=== PATIENT | female | born 1960 | race Caucasian/White ===

== ENCOUNTER 2016-07-21 17:28 | Emergency (ER) | payer MEDICARE, MEDICAID ==
[2016-07-21] MEDS ORDERED: HYDROmorphone* 1 MG/ML 1 ML SYR IV SLOW PU ONE (18:06)
[2016-07-21] MEDS ORDERED: Ondansetron INJ* 2 MG/ML VIAL IV ONE (18:06)
[2016-07-21] MEDS: NS 0.9% 1000 ML* 2,000 ML IV ONE (18:20)
[2016-07-21 18:40] LABS: Hematocrit 31 % (35-47); Hemoglobin 10.1 g/dl (12.0-16.0); Mean Corpuscular HGB Conc 32 g/dl (31-36); Mean Corpuscular Hemoglobin 26 pg (27-31); Mean Corpuscular Volume 81 fL (80-97); Mean Platelet Volume 8 um3 (7.4-10.4); Red Blood Count 3.85 10^6/ul (4.0-5.4); Red Cell Distribution Width 18 % (10.5-15); White Blood Count 8.6 10^3/ul (3.5-10.8)
--- NOTE | 2016-07-21 18:41 | RAD ---
CLINICAL HISTORY: Lower abdominal pain, hematuria COMPARISON: December 03, 2013 TECHNIQUE: Multiple contiguous axial CT scans were obtained of the abdomen and pelvis, without intravenous contrast enhancement. Coronal and sagittal multiplanar reformations are submitted for review. Oral contrast was not administered. FINDINGS: The study is limited by the lack of intravenous contrast. This limits evaluation of the solid organs and vasculature. LUNG BASES: The lung bases are clear. LIVER: The liver is normal in shape, size, contour, and attenuation. BILE DUCTS: There is no intrahepatic or extrahepatic biliary dilatation. GALLBLADDER: The gallbladder is not visualized. Surgical clips are noted in the gallbladder fossa. PANCREAS: The pancreas is normal, without mass or ductal dilatation. SPLEEN: Normal in size and appearance. UPPER GI TRACT: Evaluation of the gastrointestinal tract is limited by incomplete gastric distention. The upper GI tract is unremarkable. SMALL BOWEL AND MESENTERY: The small bowel is normal in contour, course, and caliber. There is no obstruction or dilatation. COLON: The colon is normal in contour, course, caliber. There is no pericolonic inflammatory change. ADRENALS: Normal bilaterally. KIDNEYS: Exophytic renal cysts are noted on the right. There is no appreciable hydronephrosis or nephrolithiasis, though evaluation of the distal ureters is limited by streak artifact from spinal fusion hardware BLADDER: The bladder is incompletely distended but is grossly normal. PELVIC ORGANS: The pelvic organs are not visualized. AORTA: There is calcific atherosclerotic disease of the abdominal aorta and its branches, without aneurysmal dilatation IVC: Unremarkable LYMPH NODES: There is no lymphadenopathy by size criteria. ABDOMINAL WALL: There is no evidence for abdominal wall hernia. BONES AND SOFT TISSUES: The patient is status post spinal fusion. OTHER: None IMPRESSION: NO APPRECIABLE HYDRONEPHROSIS OR NEPHROLITHIASIS. EVALUATION OF THE DISTAL URETERS IS LIMITED BY STREAK ARTIFACT FROM SPINAL FUSION HARDWARE.
[2016-07-21 18:45] LABS: Urine Bilirubin Negative (Negative); Urine Glucose Negative (Negative); Urine Nitrite Negative (Negative)
[2016-07-21 18:56] LABS: Calcium 9.3 mg/dL (8.6-10.3); EGFR Non-African American 91.7 (>60); Globulin 3.2 g/dL (2-4); Potassium 3.6 mmol/L (3.5-5.0); Total Bilirubin 0.4 mg/dL (0.2-1.0); Total Protein 7.2 g/dL (6.4-8.9)
--- NOTE | 2016-07-21 19:43 | ED ---
GI/ HPI - HPI Summary HPI Summary: 56F presents with lower abdominal pain, blood in urine, and vaginal itchiness for a day. She states she has history of yeast infection although she is not diabetic and denies any recent antibiotic usage. She denies any vaginal discharge. She states when she had this pain in the past they treated as a yeast infection. She admits to epigastric pain which she says is due to GERD. Her only medical conditions is that she takes dilaudid for her chronic back pain. She had her gallbladder, ovaries, and uterus removed. She has had rods placed in her back. She denies any diarrhea or constipation. She had normal colonscopy 3 years ago. She states that her groin has been sweating more and feels swollen. She has tried hydrogen peroxide, different soaps, hydrocortisone on area without relief. She says that the itchiness of her groin has gotten worst and she keeps scratching the area. She denies any dysuria but admits to frequency and urgency. She states she occasionally has bilateral flank pain and she has a history of kidney stones. - History of Current Complaint Chief Complaint: EDUrogenitalProblems Time Seen by Provider: 07/21/16 17:52 Stated Complaint: ABD PAIN/SENT FROM [facility] Pain Intensity: 6 - Allergy/Home Medications Allergies/Adverse Reactions: Allergies Allergy/AdvReac Type Severity Reaction Status Date / Time Acetaminophen [From Tylenol] Allergy Unknown Unknown Verified 07/21/16 18:43 Reaction Details Codeine Allergy Unknown Rash Verified 07/21/16 18:43 Naproxen Allergy Unknown Unknown Verified 07/21/16 18:43 Reaction Details Morphine Allergy Rash Verified 07/21/16 18:43 PMH/Surg Hx/FS Hx/Imm Hx Endocrine/Hematology History: Denies: Hx Anticoagulant Therapy Cardiovascular History: Denies: Hx Pacemaker/ICD GI History: Reports: Hx Ulcer - no tylenol or naproxen as per pt Musculoskeletal History: Reports: Hx Back Problems - Dr Roberts for pain management., Other Musculoskeletal History - neck pain Denies: Hx Scoliosis Neurological History: Reports: Hx Headaches, Other Neuro Impairments/Disorders - Cancer History Hx Chemotherapy: Yes - HEPATITIS C-2009 Hx Radiation Therapy: No - Surgical History Surgery Procedure, Year, and Place: LARGE CELL ARTERYITIS 6MTHS AGO AT [place], -SPINE SURGERY 2004 DISCECTOMY, HYSTERECTOMY, Infectious Disease History: No Infectious Disease History: Denies: Traveled Outside the [place] in Last 30 Days - Family History Known Family History: Positive: Cardiac Disease - Social History Alcohol Use: Occasionally Substance Use Type: Reports: Prescribed Smoking Status (MU): Current Every Day Smoker Review of Systems Negative: Fever Negative: Chest Pain Negative: Shortness Of Breath Positive: Abdominal Pain. Negative: Vomiting, Diarrhea, Nausea Positive: frequency, flank pain, hematuria. Negative: dysuria All Other Systems Reviewed And Are Negative: Yes Physical Exam Triage Information Reviewed: Yes Vital Signs On Initial Exam: Initial Vitals Temp Pulse Resp BP Pulse Ox 98.9 F 77 18 151/81 97 07/21/16 17:44 07/21/16 17:44 07/21/16 17:44 07/21/16 17:44 07/21/16 17:44 Vital Signs Reviewed: Yes Appearance: Positive: Well-Appearing Skin: Positive: Warm, Dry, Other - small raised lesions on mons pubis Head/Face: Positive: Normal Head/Face Inspection Eyes: Positive: Normal, Conjunctiva Clear ENT: Positive: Normal ENT inspection, Pharynx normal, TMs normal Respiratory/Lung Sounds: Positive: Clear to Auscultation, Breath Sounds Present Cardiovascular: Positive: Normal, RRR Abdomen Description: Positive: Soft, Other: - mild tenderness in pelvic region Bowel Sounds: Positive: Present Pelvic Exam: Positive: external exam normal, speculum exam normal, bimanual exam normal. Negative: discharge - [place] Coma Scale Coma Scale Total: 15 Diagnostics - Vital Signs Vital Signs Temp Pulse Resp BP Pulse Ox 07/21/16 18:33 148/64 07/21/16 18:20 18 07/21/16 18:12 70 97 07/21/16 18:09 74 96 07/21/16 17:58 98 F 67 16 172/67 97 07/21/16 17:44 98.9 F 77 18 151/81 97 - Laboratory Lab Results: Lab Results 07/21/16 07/21/16 07/21/16 Range/Units 18:25 18:25 18:25 WBC 8.6 (3.5-10.8) 10^3/ul RBC 3.85 L (4.0-5.4) 10^6/ul Hgb 10.1 L (12.0-16.0) g/dl Hct 31 L (35-47) % MCV 81 (80-97) fL MCH 26 L (27-31) pg MCHC 32 (31-36) g/dl RDW 18 H (10.5-15) % Plt Count 225 (150-450) 10^3/ul MPV 8 (7.4-10.4) um3 Neut % (Auto) 53.7 (38-83) % Lymph % (Auto) 31.6 (25-47) % [place] % (Auto) 7.0 (1-9) % Eos % (Auto) 6.8 H (0-6) % Baso % (Auto) 0.9 (0-2) % Absolute Neuts (auto) 4.6 (1.5-7.7) 10^3/ul Absolute Lymphs (auto) 2.7 (1.0-4.8) 10^3/ul Absolute Monos (auto) 0.6 (0-0.8) 10^3/ul Absolute Eos (auto) 0.6 (0-0.6) 10^3/ul Absolute Basos (auto) 0.1 (0-0.2) 10^3/ul Absolute Nucleated RBC 0 10^3/ul Nucleated RBC % 0 Sodium 131 L (133-145) mmol/L Potassium 3.6 (3.5-5.0) mmol/L Chloride 99 L (101-111) mmol/L Carbon Dioxide 27 (22-32) mmol/L Anion Gap 5 (2-11) mmol/L BUN 6 (6-24) mg/dL Creatinine 0.67 (0.51-0.95) mg/dL Est GFR ( Amer) 118.0 (>60) Est GFR (Non-Af Amer) 91.7 (>60) BUN/Creatinine Ratio 9.0 (8-20) Glucose 84 (70-100) mg/dL Lactic Acid (0.5-2.0) mmol/L Calcium 9.3 (8.6-10.3) mg/dL Total Bilirubin 0.40 (0.2-1.0) mg/dL AST 17 (13-39) U/L ALT 9 (7-52) U/L Alkaline Phosphatase 74 (34-104) U/L C-React Prot High Sens 6.26 mg/L Total Protein 7.2 (6.4-8.9) g/dL Albumin 4.0 (3.2-5.2) g/dL Globulin 3.2 (2-4) g/dL Albumin/Globulin Ratio 1.3 (1-3) Lipase 35 (11.0-82.0) U/L Urine Color Straw Urine Appearance Clear Urine pH 6.0 (5-9) Ur Specific [place] 1.003 L (1.010-1.030) Urine Protein Negative (Negative) Urine Ketones Negative (Negative) Urine Blood Negative (Negative) Urine Nitrate Negative (Negative) Urine Bilirubin Negative (Negative) Urine Urobilinogen Negative (Negative) Ur Leukocyte Esterase Negative (Negative) Urine Glucose Negative (Negative) 07/21/16 Range/Units 18:25 WBC (3.5-10.8) 10^3/ul RBC (4.0-5.4) 10^6/ul Hgb (12.0-16.0) g/dl Hct (35-47) % MCV (80-97) fL MCH (27-31) pg MCHC (31-36) g/dl RDW (10.5-15) % Plt Count (150-450) 10^3/ul MPV (7.4-10.4) um3 Neut % (Auto) (38-83) % Lymph % (Auto) (25-47) % [place] % (Auto) (1-9) % Eos % (Auto) (0-6) % Baso % (Auto) (0-2) % Absolute Neuts (auto) (1.5-7.7) 10^3/ul Absolute Lymphs (auto) (1.0-4.8) 10^3/ul Absolute Monos (auto) (0-0.8) 10^3/ul Absolute Eos (auto) (0-0.6) 10^3/ul Absolute Basos (auto) (0-0.2) 10^3/ul Absolute Nucleated RBC 10^3/ul Nucleated RBC % Sodium (133-145) mmol/L Potassium (3.5-5.0) mmol/L Chloride (101-111) mmol/L Carbon Dioxide (22-32) mmol/L Anion Gap (2-11) mmol/L BUN (6-24) mg/dL Creatinine (0.51-0.95) mg/dL Est GFR ( Amer) (>60) Est GFR (Non-Af Amer) (>60) BUN/Creatinine Ratio (8-20) Glucose (70-100) mg/dL Lactic Acid 0.9 (0.5-2.0) mmol/L Calcium (8.6-10.3) mg/dL Total Bilirubin (0.2-1.0) mg/dL AST (13-39) U/L ALT (7-52) U/L Alkaline Phosphatase (34-104) U/L C-React Prot High Sens mg/L Total Protein (6.4-8.9) g/dL Albumin (3.2-5.2) g/dL Globulin (2-4) g/dL Albumin/Globulin Ratio (1-3) Lipase (11.0-82.0) U/L Urine Color Urine Appearance Urine pH (5-9) Ur Specific [place] (1.010-1.030) Urine Protein (Negative) Urine Ketones (Negative) Urine Blood (Negative) Urine Nitrate (Negative) Urine Bilirubin (Negative) Urine Urobilinogen (Negative) Ur Leukocyte Esterase (Negative) Urine Glucose (Negative) Result Diagrams: 07/21/16 18:25 07/21/16 18:25 Lab Statement: Any lab studies that have been ordered have been reviewed, and results considered in the medical decision making process. - CT abd CT Interpretation: No Acute Changes - IMPRESSION: NO APPRECIABLE HYDRONEPHROSIS OR NEPHROLITHIASIS. EVALUATION OF THE DISTAL URETERS IS LIMITED BY STREAK ARTIFACT FROM SPINAL FUSION HARDWARE. CT Interpretation Completed By: Radiologist TAWNY Course/Dx - Course Course Of Treatment: 56F presents with what she believes to be a yeast infection. She states she has had itching to her groin for 5 years and has been treated as yeast infection before and it goes away. denies any vaginal discharge. She states she has been placing hydrogen peroxide, hydrocortisone on area and it is making it worst. She states pain radiates up to lower abdomen. she denies any n/v/d. She has what appears to be contact dermatitis to mons pubis. vaginal exam normal no discharge present no evidence of yeast infection on exam. abdomen mild tenderness in RLQ and LLQ. CT ab to look for stone did not show stones. u/a normal. wbc normal. discussed needs to see OBGYN about vaginal itching as likely hormone related but no lesions seen. pubic area appears to have contact dermatitis likely due to irrigants such as hydrogen peroxide has been using on area. told to stop all products. patient understands and agrees with plan - Diagnoses Differential Diagnoses - Female: Urinary Tract Infection, Ureteral Calculi, Vaginitis Provider Diagnoses: Abdominal pain, Contact dermatitis Discharge - Discharge Plan Condition: Good Disposition: HOME Patient Education Materials: Contact Dermatitis (ED) Referrals: Anthony Elkins MD [Primary Care Provider] - Additional Instructions: Your pain is not caused by any surgical emergency Drink small amounts of fluid as tolerated Stop all vaginal products, do not itch area Take ibuprofen for pain as needed every 6 hours Follow up with primary within 5 days Follow up with obgyn Return to ED if develop any new or worsening symptoms
[2016-07-21 20:30] VITALS: BP 120/48
== END 2016-07-21 20:40 | disposition home or self-care (01) ==
LOC: ED 17:28
DX: R10.30 Lower abdominal pain, unspecified (principal); L25.9 Unspecified contact dermatitis, unspecified cause; R31.9 Hematuria, unspecified; F17.210 Nicotine dependence, cigarettes, uncomplicated
CPT/HCPCS: 36415; 74176; 80053; 81003; 83605; 83690; 85025; 86141; 87480; 87491; 87510; 87591; 87661; 93005; 99282; J1170; J2405

== ENCOUNTER 2016-11-30 06:27 | Observation (INO) | payer MEDICARE, MEDICAID ==
[2016-11-30] MEDS ORDERED: NS 0.9% 1000 ML* 1,000 ML IV ONE ×2 (07:20→08:03)
[2016-11-30 07:40] LABS: Hematocrit 39 % (35-47); Hemoglobin 12.8 g/dl (12.0-16.0); Mean Corpuscular HGB Conc 33 g/dl (31-36); Mean Corpuscular Hemoglobin 30 pg (27-31); Mean Corpuscular Volume 90 fL (80-97); Mean Platelet Volume 8 um3 (7.4-10.4); Red Blood Count 4.27 10^6/ul (4.0-5.4); Red Cell Distribution Width 16 % (10.5-15); White Blood Count 15.6 10^3/ul (3.5-10.8)
[2016-11-30 07:52] LABS: Urine Bacteria 1+ (Absent); Urine Bilirubin Negative (Negative); Urine Glucose Negative (Negative); Urine Nitrite Positive (Negative)
[2016-11-30 07:54] LABS: Albumin 4.1 g/dL (3.2-5.2); BUN/Creatinine Ratio 21.1 (8-20); C Reactive Protein 16.4 mg/L (< 5.00); Calcium 9.5 mg/dL (8.6-10.3); EGFR African American 110.3 (>60); EGFR Non-African American 85.8 (>60); Potassium 4.1 mmol/L (3.5-5.0); Total Bilirubin 0.3 mg/dL (0.2-1.0); Total Protein 7.1 g/dL (6.4-8.9)
[2016-11-30] MEDS ORDERED: HYDROmorphone INJ* 1 MG/ML CARPUJECT SYRINGE IV ONE ×2 (08:03→08:27)
[2016-11-30] MEDS ORDERED: cefTRIAXone(*) 1 GM in NS 0.9% 50 ML* 50 ML IVPB ONE (08:03)
[2016-11-30] MEDS ORDERED: Ondansetron INJ* 2 MG/ML VIAL IV ONE (08:03)
[2016-11-30] MEDS ORDERED: HYDROmorphone INJ* 2 MG/ML CARPUJECT SYRINGE ONE ×2 (08:13→08:33)
--- NOTE | 2016-11-30 10:37 | RAD ---
Indication: Hematuria, lower abdominal pain. CT of the abdomen and pelvis was performed without oral or IV contrast administration. Coronal and sagittal reconstructed images were obtained. Lung bases demonstrate no pleural fluid, nodules or masses. Heart is of normal size without effusion is noted. The liver is normal in size. No focal lesions or intrahepatic duct dilatation is noted. The patient is status post cholecystectomy. The spleen is normal in size. The pancreas demonstrates no mass or pancreatic duct dilatation. No adrenal masses are noted. There is mild degree of left hydronephrosis noted. Portions of the left ureter are obscured by artifact from surgical change. There is suggestion of a calculus in the distal left ureter measuring approximately 4 mm. Several phleboliths are also present. The urinary bladder is collapsed. The patient is status post hysterectomy. No hernias are noted. No free fluid is identified. The colon is filled with stool. IMPRESSION: Mild left hydronephrosis. Likely 4 mm calculi in the distal left ureter. Portions of the ureter are obscured by surgical clips from postoperative change.
[2016-11-30] MEDS ORDERED: Morphine INJ* 2 MG/ML 1 ML SYRINGE (TWO MG - NEW SYRINGE VERSION) IV PRN (12:45)
[2016-11-30] MEDS ORDERED: Ondansetron INJ* 2 MG/ML VIAL IV PRN (12:45)
[2016-11-30] MEDS ORDERED: HYDROmorphone INJ* 2 MG/ML CARPUJECT SYRINGE IV SLOW PU ONE (13:26)
[2016-11-30] MEDS: Heparin VIAL(*) 5000 UNITS/ML VIAL (FIVE THOUSAND) SUBCUT SCH ×2 (15:02→22:42)
[2016-11-30] MEDS: Tamsulosin CAP* 0.4 MG PO SCH (15:29)
[2016-11-30] MEDS: NS 0.9% 1000 ML* 1,000 ML IV SCH (15:32)
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
[2016-11-30] MEDS ORDERED: HYDROmorphone TAB* 2 MG PO SCH (18:00)
[2016-11-30] MEDS ORDERED: ALPRAZolam TAB* 0.5 MG PO SCH (18:00)
[2016-11-30] MEDS: ALPRAZolam TAB* 0.5 MG PO PRN ×2 (18:07→22:41)
[2016-11-30] MEDS ORDERED: Nicotine GUM* 2 MG PO PRN (19:40)
[2016-11-30] MEDS ORDERED: Nicotine Inhaler* 10 MG AMP INH PRN (19:40)
[2016-11-30] MEDS ORDERED: Mouth Piece, Nicotine* 1 EACH CARTRIDGE INH ONE (20:30)
[2016-11-30] MEDS: HYDROmorphone INJ* 2 MG/ML CARPUJECT SYRINGE IV SLOW PU PRN (20:37)
--- NOTE | 2016-12-01 00:45 | HP ---
CC: Anthony Elkins MD* HISTORY AND PHYSICAL: DATE OF ADMISSION: 11/30/16 CHIEF COMPLAINT: Abdominal pain with bleeding. HISTORY OF PRESENT ILLNESS: The patient is a 56-year-old woman, who presented to the [facility] with a chief complaint of bleeding when she was urinating, which started yesterday evening. She developed cramping in both sides of her groin area. It travelled to her back. She has a history of chronic pain, but this is really significantly different. She also could tell me the urge to urinate and then developed diarrhea. She said eventually she was able to go back to sleep, but she woke up from her sleep with such increased pain. She has had kidney stones before and was reminiscent of this. She also developed dry heaves while having it. She denied any fevers or chills. The patient had a CAT scan of her abdomen and pelvis, which showed a small 4-mm calculi and mild left hydronephrosis. PAST MEDICAL HISTORY: The patient has a past medical history for chronic back pain since 1998 and one 18 hour long back surgery in 2004. CURRENT MEDICATIONS: 1. Estradiol 1 mg in the morning. 2. Xanax 0.5 mg in the morning, 1 mg in the evening. 3. Nexium 20 mg daily. 4. Dilaudid tab 4 mg in the morning and 2 mg in the evening. 5. Ibuprofen 200 mg in the morning. 6. Pristiq 50 mg in the morning. ALLERGIES: She has an allergy/adverse reaction to ACETAMINOPHEN, CODEINE, NAPROXEN, and MORPHINE. FAMILY HISTORY: Mother is alive at 89, has dementia. Father at 81 with an MS. SOCIAL HISTORY: Occasional tobacco. Rare alcohol. No recreational drug use. She is a home health aide. She is not . She has no children. She has no healthcare proxy. REVIEW OF SYSTEMS: A 14-point review of systems was completed with the patient. All pertinent positives and negatives are in the history of present illness, otherwise it is negative. PHYSICAL EXAMINATION GENERAL: A pleasant woman, lying in bed, in no acute distress. VITAL SIGNS: Temperature is 97.6 degrees, heart rate is 62 beats per minute, respiratory rate 16 breaths per minute, pulse ox 98%, blood pressure 122/50. HEENT: Normocephalic, atraumatic. Pupils equal, round, and reactive to light. Moist mucous membranes. NECK: Supple. No JVD, bruits, palpable thyroid, or lymphadenopathy. CHEST: Clear to auscultation and percussion bilaterally. CARDIOVASCULAR: S1, S2 appreciated. Regular rate and rhythm. ABDOMEN: Positive bowel sounds in all 4 quadrants. Soft, minimally tender, but no rebound, no guarding or rigidity. EXTREMITIES: No cyanosis, clubbing, or edema. +2 pulses bilaterally. NEURO: Alert and oriented x3. Moves all extremities. SKIN: No rashes or abnormalities. DIAGNOSTIC STUDIES/LAB DATA: White count 15.6, hemoglobin 12.8, hematocrit 39 , and platelets 257. Sodium is 137, potassium 4.1, chloride 105, CO2 26, BUN 15 , creatinine 0.71, and glucose is 113. INR is 0.82. Urinalysis is +2 wbc's, + 2 rbc's, +1 bacteria. CAT scan of the abdomen and pelvis shows mild left hydronephrosis, left 4-mm calculi at the distal left ureter, and portions of the ureters are obscured by surgical clips and postoperative change. ASSESSMENT AND PLAN: 1. Nephrolithiasis with some mild hydronephrosis. The patient to [facility] [place], adequately treat her pain with additional IV Dilaudid, hydrate with normal saline at cc. Would recheck in the a.m. If the patient continues to have pain, may need Urology to evaluate for possible stent placement and we will also continue the patient on Rocephin 1 g IV daily. 2. Chronic pain, stable. Continue current regimen. 3. DVT prophylaxis, heparin subcu. 4. The patient is a full code. TIME SPENT: Over 75 minutes was spent on this H and P, more than 40 minutes of which was spent in direct [id number] contact with the patient in evaluation, physical exam, counseling, and coordination of care. [id number]/[facility] #: [id number] [place]
[2016-12-01] MEDS: HYDROmorphone INJ* 2 MG/ML CARPUJECT SYRINGE IV SLOW PU PRN (00:58)
[2016-12-01] MEDS: NS 0.9% 1000 ML* 1,000 ML IV SCH (02:59)
[2016-12-01] MEDS ORDERED: Nicotine Patch Removal NOTE FOLLOW UP SCH (06:00)
[2016-12-01] MEDS: Heparin VIAL(*) 5000 UNITS/ML VIAL (FIVE THOUSAND) SUBCUT SCH (06:22)
[2016-12-01] MEDS ORDERED: cefTRIAXone VIAL(*) 1,000 MG in NS 0.9% 50 ML* 50 ML IVPB SCH (08:00)
[2016-12-01] MEDS ORDERED: Nicotine PATCH 21 MG/24 HR* PATCH TRANSDERM SCH (08:00)
[2016-12-01] MEDS ORDERED: Omeprazole CAP* 20 MG PO SCH (09:00)
[2016-12-01] MEDS ORDERED: Ibuprofen TAB* 200 MG PO SCH (09:00)
[2016-12-01] MEDS ORDERED: HYDROmorphone TAB* 2 MG PO SCH (09:00)
[2016-12-01] MEDS ORDERED: ALPRAZolam TAB* 0.5 MG PO SCH (09:00)
[2016-12-01] MEDS ORDERED: Desvenlafaxine (NF) 50 MG TAB PO SCH (09:00)
[2016-12-01] MEDS ORDERED: CMCS: Estradiol TAB(NF) 1 MG TAB PO SCH (09:00)
[2016-12-01] MEDS: Tamsulosin CAP* 0.4 MG PO SCH (10:24)
[2016-12-01 12:46] VITALS: BP 168/62
--- NOTE | 2016-12-03 06:37 | DS ---
CC: Anthony Elkins MD* DISCHARGE SUMMARY: DATE OF ADMISSION: 11/30/16 DATE OF DISCHARGE: 12/01/16 ADMISSION DIAGNOSES: 1. Bilateral inguinal pain. 2. Hematuria. 3. Left hydronephrosis. 4. Nephrolithiasis. 5. Chronic pain. DISCHARGE DIAGNOSES: 1. Bilateral inguinal pain. 2. Hematuria. 3. Left hydronephrosis. 4. Nephrolithiasis. 5. Chronic pain. HOSPITAL COURSE: The patient is a 56-year-old woman, who presented to [facility] with a chief complaint of bilateral inguinal pain and blood in her urine. The patient was found to have a left ureteral calculus with mild left hydro. This was discussed with Urology. He recommended hydrating the patient vigorously for pain management and she should pass that on her own, otherwise she would get a stent. This was what was done. The patient improved dramatically and just in the next 24 hours her pain resolved and she was anxious to go home. The patient was stable to discharge on 12/01/16. PHYSICAL EXAMINATION: On the date of discharge, well-developed, well-nourished woman, sitting up in bed, in no acute distress. Vital Signs: Temperature is 98.8 degrees, heart rate 62 beats per minute, respiratory rate 17 breaths per minute, pulse ox 98%, blood pressure 168/62. HEENT: Normocephalic, atraumatic. Pupils equal, round, and reactive to light. Moist mucous membranes. Neck: Supple. No JVD, bruits, palpable thyroid, or lymphadenopathy. Chest: Clear to auscultation and percussion bilaterally. Cardiovascular Exam: S1, S2 appreciated. Regular rate and rhythm. Abdominal Exam: Positive bowel sounds in all 4 quadrants, soft, nontender, nondistended. No hepatosplenomegaly. Extremities: No cyanosis, clubbing, or edema. +2 pulses bilaterally. Neuro: Alert and oriented x3, moves all extremities. Skin : No rashes or abnormalities. STUDIES DONE WHILE IN THE HOSPITAL: Abdominal and pelvic CT on 11/30/16, impression: Mild left hydronephrosis, likely 4-mm calculi of the distal left ureter. Portions of the ureters are obscured by surgical clips and postoperative change. DISCHARGE MEDICATIONS: 1. Estradiol 1 mg daily. 2. Alprazolam 0.5 mg in the morning, 1 mg in the evening. 3. Nexium 20 mg daily. 4. Hydromorphone tab 4 mg in the morning and 2 mg in the evening. 5. Ibuprofen 200 mg in the morning. 6. Pristiq 50 mg in the morning. 7. Flomax 0.4 mg daily. DISCHARGE PLAN: The patient will be discharged home and follow up with her PCP within 1 week. The patient will return to the ED if symptoms recur. TIME SPENT: Over 40 minutes were spent on this discharge, more than 25 minutes of which was spent in direct [id number] contact with the patient in evaluation , physical exam, counseling, and coordination of care. [id number]/[facility] #: [id number] [place]
== END 2016-12-01 12:56 | disposition home or self-care (01) ==
LOC: ED 06:27 → SSU 12:45
PROVIDERS: ADMIT Internal Medicine; ATTEND Internal Medicine
DX: N13.2 Hydronephrosis with renal and ureteral calculous obstruction (principal); R10.30 Lower abdominal pain, unspecified; R31.0 Gross hematuria; G89.29 Other chronic pain; Z79.899 Other long term (current) drug therapy; R30.0 Dysuria
CPT/HCPCS: 36415; 74176; 80053; 81003; 81015; 83690; 85025; 85610; 85730; 86140; 87040; 87077; 87086; 87186; 96365; 96366; 96372; 96375; 96376; 99284; A9270-GY; J0696; J1170; J1644; J2405

== ENCOUNTER 2017-12-02 12:11 | Emergency (ER) | payer MEDICARE, MEDICAID ==
[2017-12-02] MEDS ORDERED: HYDROmorphone TAB* 4 MG PO ONE (13:17)
--- NOTE | 2017-12-02 13:17 | ED ---
HPI Chest Pain - HPI Summary HPI Summary: This patient is a 57 year old MF [place] [facility] [place] by with a chief complaint of left anterior/lateral CP since 11/30/17. She endorses pain management monthly for PMHx back problems. She states she was getting her back manipulated and during she noted her ribs cracked like I never heard before. pain alleviated at rest/no movement, and worsened with any movement. She endorses pain radiation to her back which travels to her shoulder. Pt states she slammed a car door with left arm which onset sx; I couldnt move. She endorses SOB, cough in the AM, fever, chills, and anxiety. Pt endorses having taken Tylenol and a muscle relaxer with no sx alleviation. FHx aneurysm grandmother, blood clots. This AM at 0630 she took 4 mg dilaudid, mg Xanax, Pristiq 50 mg. - History of Current Complaint Chief Complaint: EDChestPainROMI Time Seen by Provider: 12/02/17 12:37 Hx Obtained From: Patient Onset/Duration: Started Days Ago - 2 Timing: Constant Initial Severity: Severe Current Severity: Severe Pain Intensity: 7 Pain Scale Used: 0-10 Numeric Chest Pain Location: Discrete at:, Left Anterior, Left Lateral Chest Pain Radiates: Yes Chest Pain Radiates To:: Back, Shoulder Character: Sharp/Stabbing Aggravating Factor(s): Movement Alleviating Factor(s): Rest - stationary Associated Signs and Symptoms: Positive: Chest Pain, Anxiety, Shortness of Breath, Fever, Chills, Back Pain - Additional Pertinent History Primary Care Physician: PROSPER - Allergy/Home Medications Allergies/Adverse Reactions: Allergies Allergy/AdvReac Type Severity Reaction Status Date / Time codeine Allergy See Comment Verified 12/02/17 12:19 morphine Allergy Rash Verified 12/02/17 12:19 naproxen Allergy Unknown Verified 12/02/17 12:19 Reaction Details Home Medications: Home Medications Cyclobenzaprine TAB* [Flexeril 10 MG TAB*] 10 mg PO SEE INSTRUCTIONS PRN [History Confirmed 12/02/17] PMH/Surg Hx/FS Hx/Imm Hx Endocrine/Hematology History: Denies: Hx Anticoagulant Therapy, Hx Sickle Cell Disease Cardiovascular History: Reports: Hx Hypertension, Other Cardiovascular Problems/ Disorders - Large cell arteritis Denies: Hx Pacemaker/ICD Respiratory History: Reports: Hx Chronic Obstructive Pulmonary Disease (COPD) GI History: Reports: Hx Gastroesophageal Reflux Disease, Hx Irritable Bowel, Hx Ulcer - no tylenol or naproxen as per pt History: Reports: Hx Kidney Stones Musculoskeletal History: Reports: Hx Arthritis, Hx Back Problems - Dr Roberts for pain management., Other Musculoskeletal History - neck pain Denies: Hx Scoliosis Sensory History: Reports: Hx Contacts or Glasses Denies: Hx Legally Blind, Hx Deafness, Hx Hearing Aid Opthamlomology History: Reports: Hx Contacts or Glasses Denies: Hx Legally Blind EENT History: Denies: Hx Deafness Neurological History: Reports: Hx Headaches, Other Neuro Impairments/Disorders Psychiatric History: Reports: Hx Anxiety, Hx Depression, Hx Panic Disorder, Hx Inpatient Treatment, Hx Suicide Attempt Denies: Hx of Violent Episodes Against Others - Cancer History Hx Chemotherapy: Yes - HEPATITIS C-2009 Hx Radiation Therapy: No - Surgical History Surgery Procedure, Year, and Place: LARGE CELL ARTERYITIS 6MTHS AGO AT [place], -SPINE SURGERY 2005 DISCECTOMY, HYSTERECTOMY, Hx Anesthesia Reactions: Yes Infectious Disease History: Yes Infectious Disease History: Reports: Hx Hepatitis Denies: Hx of Known/Suspected MRSA, Hx Shingles, Hx Tuberculosis, Traveled Outside the [place] in Last 30 Days - Family History Known Family History: Positive: Cardiac Disease, Other - aneurysm grandmother, blood clots - Social History Occupation: Employed Full-time Alcohol Use: Occasionally Alcohol Amount: three times a year Substance Use Type: Reports: Prescribed Smoking Status (MU): Light Every Day Tobacco Smoker Type: Cigarettes Amount Used/How Often: 12-14 cigarettes a day Length of Time of Smoking/Using Tobacco: 40 years Have You Smoked in the Last Year: Yes Review of Systems Positive: Fever, Chills Negative: Erythema Negative: Sore Throat Positive: Chest Pain - L lateral/anterior Positive: Shortness Of Breath, Cough - in AM Negative: Abdominal Pain, Vomiting, Nausea Negative: dysuria, hematuria Positive: Myalgia - L chest, radiates to back, Decreased ROM - secondary to pain. Negative: Edema Negative: Rash Neurological: Other - NEGATIVE: dizziness Positive: Anxious All Other Systems Reviewed And Are Negative: Yes Physical Exam - Summary Physical Exam Summary: Constitutional: Well-developed, Well-nourished, Alert. (+) mild pain distress Skin: Warm, Dry HENT: Normocephalic; Atraumatic Eyes: Conjunctiva normal Neck: Musculoskeletal ROM normal neck. (-) JVD, (-) Stridor, (-) Tracheal deviation Cardio: Rhythm regular, rate normal, Heart sounds normal; Intact distal pulses; The pedal pulses are 2+ and symmetric. Radial pulses are 2+ and symmetric. (-) Murmur Pulmonary/Chest wall: Effort normal. (-) Respiratory distress, (-) Wheezes, (-) Rales Abd: Soft, (-) epigastric tenderness, (-) Distension, (-) Guarding, (-) Rebound Musculoskeletal: (-) Edema, reproducible TTP of 8th 9th 10th rib on left side Lymph: (-) Cervical adenopathy Neuro: Alert, Oriented x3 Psych: Mood and affect Normal Triage Information Reviewed: Yes Vital Signs On Initial Exam: Initial Vitals Temp Pulse Resp BP Pulse Ox 97.5 F 60 18 180/80 97 12/02/17 12:12 12/02/17 12:12 12/02/17 12:12 12/02/17 12:12 12/02/17 12:12 Vital Signs Reviewed: Yes Diagnostics - Vital Signs Vital Signs Temp Pulse Resp BP Pulse Ox 12/02/17 13:00 15 12/02/17 12:54 16 176/83 12/02/17 12:25 161/68 12/02/17 12:23 63 13 97 12/02/17 12:12 97.5 F 60 18 180/80 97 - Laboratory Result Diagrams: 12/02/17 13:56 12/02/17 13:56 Lab Statement: Any lab studies that have been ordered have been reviewed, and results considered in the medical decision making process. - Radiology CXR Radiology Interpretation Completed By: Radiologist Summary of Radiographic Findings: No active cardiopulmonary disease. Dr. Walker has reviewed this report. - CT CXR CT Interpretation Completed By: Radiologist Summary of CT Findings: NO PULMONARY ARTERIAL FILLING DEFECT TO SUGGEST PULMONARY EMBOLISM. Dr. Walker has reviewed this report. - EKG 1253 Cardiac Rate: Bradycardia - 54 EKG Rhythm: Sinus Bradycardia ST Segment: Normal Ectopy: None Summary of EKG Findings: No STEMI. Chest Pain Course/Dx - Course Course Of Treatment: A 57-year-old F presents to the ED with a CC of L anterior/ lateral CP for 2 days. (+) pain radiation to back, shoulder, fever, chills, anxiety, SOB. PMHx back problems, was getting it manipulated when she heard a "crack like she never had before" in her rib area, afterwards she slammed her car door with her left arm and experienced sudden onset severe pain; "I couldn' t move" secondary to pain. A CXR was (-). A CTA chest was (-). An EKG reveals sinus bradycardia at 54 BPM with no STEMI. In the ED course, pt was given dilaudid and contrast. Pt labs show low lymph % and low Na+. - Diagnoses Provider Diagnoses: Strain of chest wall Discharge - Sign-Out/Discharge Documenting (check all that apply): Patient Departure - discharge - Discharge Plan Condition: Stable Disposition: HOME Patient Education Materials: Chest Wall Pain (ED) Referrals: Anthony Elkins MD [Primary Care Provider] - Additional Instructions: Return to the emergency department for any new or worsening symptoms. Follow up with your primary care provider in 2-3 days. - Attestation Statements Document Initiated by Scribe: Yes Documenting Scribe: Jasbir Onofre Provider For Whom Scribe is Documenting (Include Credential): Dr. Cortez Walker MD Scribe Attestation: Jasbir Arora, scribed for Dr. Cortez Walker MD on 12/02/17 at 1634.
--- NOTE | 2017-12-02 13:50 | RAD ---
HISTORY: L CP COMPARISONS: December 03, 2013 VIEWS: 1: frontal AP view of the chest at 1:33 PM FINDINGS: LINES AND TUBES: None. CARDIOMEDIASTINAL SILHOUETTE: The cardiomediastinal silhouette is normal for portable technique. PLEURA: The costophrenic angles are sharp. No pleural abnormalities are noted. LUNG PARENCHYMA: The lungs are clear. ABDOMEN: The upper abdomen is clear. There is no subphrenic gas. BONES AND SOFT TISSUES: No bone or soft tissue abnormalities are noted. IMPRESSION: NO ACTIVE CARDIOPULMONARY DISEASE.
[2017-12-02 14:24] LABS: ABS Basophils 0.1 10^3/ul (0-0.2); ABS Eosinophils 0.3 10^3/ul (0-0.6); ABS Lymphocytes 1.7 10^3/ul (1.0-4.8); ABS Monocytes 0.4 10^3/ul (0-0.8); ABS Neutrophils 4.5 10^3/ul (1.5-7.7); ABS Nucleated RBC 0 10^3/ul; Eosinophil % 4.7 % (0-6); Hematocrit 38 % (35-47); Lymphocyte % 23.9 % (25-47); Mean Corpuscular HGB Conc 34 g/dl (31-36); Mean Corpuscular Hemoglobin 31 pg (27-31); Mean Corpuscular Volume 91 fL (80-97); Nucleated Red Blood Cells % 0; Platelet Count 200 10^3/ul (150-450); Red Blood Count 4.24 10^6/ul (4.00-5.40); Red Cell Distribution Width 15 % (10.5-15)
[2017-12-02 14:35] LABS: EGFR Non-African American 85.5 (>60)
[2017-12-02] MEDS ORDERED: Iohexol 350* (CONTRAST) 500 ML MDV IV ONE (15:06)
--- NOTE | 2017-12-02 15:34 | RAD ---
HISTORY: LEFT SIDE PLEURITIC CHEST PAIN RADIATES INTO BACK; COMPARISONS: December 03, 2013 TECHNIQUE: Multiple contiguous axial CT scans of the chest were obtained after the administration of nonionic intravenous contrast, timed to the pulmonary arterial phase of contrast enhancement.. Coronal and sagittal multiplanar reformations are also submitted for review. FINDINGS: NECK AND THYROID: The lower neck and thyroid are unremarkable. CHEST WALL: There is no lower cervical, axillary, or supraclavicular lymphadenopathy by size criteria. HEART AND PERICARDIUM: The heart is unremarkable. AORTA AND PULMONARY VASCULATURE: There is no pulmonary arterial filling defect to suggest pulmonary embolism. Evaluation of the aorta is limited by the phase of contrast demonstration. There is no linear filling defect within the aorta to suggest aortic dissection. MEDIASTINUM: There is no mediastinal lymphadenopathy by size criteria. SAMM: There is no hilar lymphadenopathy by size criteria. AIRWAY AND ESOPHAGUS: The airway is unremarkable, without endobronchial filling defect. The esophagus is grossly normal. LUNG PARENCHYMA: There is a 0.4 cm nodule of the lingula on axial image 26. This can be identified on 2014 examination and is stable. The stability is consistent with a benign nodule. PLEURA: No pleural abnormalities are noted. UPPER ABDOMEN: The upper abdomen is unremarkable. BONES AND SOFT TISSUES: No bone or soft tissue abnormalities are noted. OTHER: None. IMPRESSION: NO PULMONARY ARTERIAL FILLING DEFECT TO SUGGEST PULMONARY EMBOLISM.
[2017-12-02] MEDS ORDERED: HYDROmorphone TAB* 2 MG PO ONE (16:33)
[2017-12-02] MEDS ORDERED: Lidocaine PATCH 5%* 1 PATCH TRANSDERM ONE (16:45)
[2017-12-02 17:14] VITALS: BP 172/84
[2017-12-02] MEDS ORDERED: Lidocaine Patch REMOVE* 1 NOTE MISC SCH (21:00)
== END 2017-12-02 17:14 | disposition home or self-care (01) ==
LOC: ED 12:11
DX: S29.011A Strain of muscle and tendon of front wall of thorax, initial encounter (principal); I10 Essential (primary) hypertension; F17.210 Nicotine dependence, cigarettes, uncomplicated; K21.9 Gastro-esophageal reflux disease without esophagitis; Z87.442 Personal history of urinary calculi; J44.9 Chronic obstructive pulmonary disease, unspecified; X50.9XXA Other and unspecified overexertion or strenuous movements or postures, initial encounter; Y93.89 Activity, other specified; Y92.9 Unspecified place or not applicable; Z88.5 Allergy status to narcotic agent
CPT/HCPCS: 36415; 71045; 71275; 80053; 83605; 84484; 85025; 93005; 96374; 99283; A9270-GY; Q9967

== ENCOUNTER 2018-11-01 13:34 | Emergency (ER) | payer MEDICARE, MEDICAID ==
--- OUTSIDE RECORDS SUMMARY | 2018-11-01 14:10 | XMS REPORT | Summary of Care ---
:1960 Author Organization [facility] Address [address] [address] Care Team Providers Name Role Phone Anthony Elkins MD Primary Care Provider Miles Roberts DO Unavailable Bertha Almaguer MD Unavailable Steven Erickson MD Unavailable Unavailable Mihir Burciaga MD Unavailable Unavailable Reason for Visit Reason Comments Rash itch, calvillo, pain feels like hair on top all over body Encounter Details Date Type Department Care Team Description 09/13/2018 Office Visit [facility] Renée Garcia Rash (Primary Dx) [address] [place] [address] [address] [facility] [phone] [place], [place] [id number] Allergies Active Allergy Reactions Severity Noted Date Comments Bactrim Ds Dermatologic Reaction 2013 Varenicline GI Reaction High 01/19/2017 Codeine Other High 03/04/2007 Severe pruritis and Night lora Dicyclomine Hives 05/14/2008 Environmental Rash 07/18/2018 Latex Rash High 12/17/2016 Blistery type rash Morphine Rash Low 05/02/2012 Rofecoxib Other 03/04/2007 Tongue swelling documented as of this encounter (statuses as of 09/13/2018) Medications Medication Sig Dispensed Refills Start End Date Status Date XANAX 1 MG Oral Tab Take 1 mg by 0 Active mouth TWO TIMES DAILY NEEDED for anxiety (1/2 QAM 1 QHS). ibuprofen (ADVIL) Take 400 mg by 0 Active 200 MG Oral Tab mouth TWICE DAILY. fluticasone [place] 2 Sprays 2 Bottle 3 Active (FLONASE) 50 in nose TWICE 7 MCG/ACT Nasal DAILY. Each Suspension nostril tizanidine Take 4 mg by 0 Active (ZANAFLEX) 4 MG mouth EVERY Oral Tab SIX HOURS NEEDED. clotrimazole Apply twice 60 g 4 Active (LOTRIMIN) 1 % daily 8 Apply externally Cream HYDROmorphone Take 2 Tabs by 180 Tab 0 Active (DILAUDID) 2 MG mouth EVERY 9 Oral Tab SIX HOURS NEEDED (pain). Max Daily Amount: 16 mg. Desvenlafaxine Take 1 Tab by 30 Tab 5 Active Succinate (PRISTIQ) mouth DAILY. 9 50 MG Oral TABLET SR 24 HR albuterol HFA Take 2 Puffs 19 Inhaler 3 Active (VENTOLIN HFA) 108 by inhalation 9 (90 Base) MCG/ACT EVERY FOUR Inhalation Aero HOURS SolnIndications: NEEDED Tobacco use (wheezing disorder coughing.). Cetirizine HCl Take by 0 Active (ZYRTEC ALLERGY) 10 mouth. MG Oral Cap esomeprazole TAKE 1 CAPSULE 30 Cap 1 Active magnesium (NEXIUM) BY MOUTH EVERY 9 40 MG Oral CAPSULE DAY DELAYED RELEASE estradiol (ESTRACE) TAKE 1 TABLET 90 Tab 2 Active 1 MG Oral BY MOUTH EVERY 9 TabIndications: DAY Menopausal state VALacyclovir 1 g Take 1 Tab by 21 Tab 0 09/16/19 Active Oral Tab mouth THREE 9 19 TIMES DAILY for 7 days. augmented APPLY TWICE A 50 g 2 Active betamethasone DAY NEEDED 9 dipropionate TO AREAS OF (DIPROLENE-AF) 0.05 CHEST, hands % Apply externally CreamIndications: Rash predniSONE Take 1 Tab by 14 Tab 0 Active (DELTASONE) 20 MG mouth 9 Oral DIRECTED. Take TabIndications: 2 a day for 4 Rash days, then 1 a day for 4 days. Then 1/2 tab a day for 4 days. hydrOXYzine pamoate Take 1 Cap by 60 Cap 0 Active (VISTARIL) 25 MG mouth EVERY 9 Oral EIGHT HOURS CapIndications: NEEDED Rash (itchiness). augmented APPLY TWICE A 50 g 2 09/14/19 Discontinued betamethasone DAY NEEDED 9 19 (Reorder) dipropionate TO AREAS OF (DIPROLENE-AF) 0.05 CHEST % Apply externally CreamIndications: Rash documented as of this encounter (statuses as of 09/13/2018) Active Problems Problem Noted Date Abdominal pain 02/04/2014 Celiac artery stenosis 02/04/2014 Chronic hepatitis C virus infection 02/04/2014 Eczema 01/24/2014 TMJ dysfunction 11/08/2012 Headache(784.0) 08/24/2011 Essential hypertension, benign 11/07/2010 Non-cardiac chest pain 05/29/2010 Overview: [facility] emergency room evaluation ecg, chest x-ray and blood work negative 05/2010 Negative stress echocardiogram monse Flores 05/[address] Davis negative 06/2010 Chronic low back pain 04/10/2009 Recurrent major depression 12/29/2006 Overview: [facility] psychiatrist Dr Almaguer and therapist Thiago Almaguer Obstructive sleep apnea 12/29/2006 Panic disorder without agoraphobia 12/29/2006 Overview: Mental health clinic Dr Bertha Flores every 3 months and counselor every week [place] Agudelo Tobacco use disorder 12/29/2006 Overview: Smoking 5 per day 11/09/11 Quit for 2 months 2010 Restarted 04/2010 1-2 packs per day for 30 years Personal history of colonic polyps 12/29/2006 documented as of this encounter (statuses as of 09/13/2018) Resolved Problems Problem Noted Date Resolved Date Lesion of female perineum 04/06/2017 03/11/2018 Overview: Added automatically from request for surgery [id number] Otalgia of left ear 11/08/2012 01/24/2014 Chronic hepatitis C without mention of hepatic coma 12/29/2006 08/04/2012 Degeneration of lumbar or lumbosacral intervertebral disc 12/29/20062013 documented as of this encounter (statuses as of 09/13/2018) Immunizations Name Administration Dates Next Due Adacel TdaP 07/13/2006 H1N1 Injectable Adult 02/22/2009 Influenza (IM) Preservative Free 11/26/2016, 11/08/2016, 12/14/2013, 01/31/2013, 11/09/2011, 01/02/2008 Influenza Vaccine Whole 11/20/2008, 12/29/2006 Influenza Virus Vaccine Pres Free 6-35 11/07/2010, 11/20/2009 Months PNEUMOCOCCAL POLYSACCHARIDE VACCINE 05/09/2014 Tuberculin Skin Test 09/11/1999 dT Vaccine 12/10/1998 documented as of this encounter Social History Tobacco Use Types Packs/Day Years Used Date Current Every Day Smoker Cigarettes 0.25 35 Smokeless Tobacco: Never Used Comments: 1 to 5 a day Alcohol Use Drinks/Week oz/Week Comments No 0 Standard drinks or equivalent 0.0 social Sex Assigned at Date Recorded Not on file Job Start Date Occupation Industry Not on file Not on file Not on file Travel History Travel Start Travel End No recent travel history available. documented as of this encounter Last Filed Vital Signs Vital Sign Reading Time Taken Comments Blood Pressure - - Pulse 88 09/13/2018 12:59 PM EDT Temperature 37.4 09/13/2018 12:59 PM EDT C (99.4 F) Respiratory Rate 16 09/13/2018 12:59 PM EDT Oxygen Saturation - - Inhaled Oxygen Concentration - - Weight - - Height - - Body Mass Index - - documented in this encounter Patient Instructions Patient InstructionsRenée Garcia FNP - 09/13/2018 11:00 AM EDTOff work this week Try prednisone and hydroxyzine for itch Call or return to clinic prn if these symptoms worsen or fail to improve as anticipated. Use the steroid cream to hands documented in this encounter Progress Notes Renée Garcia FNP - 09/13/2018 11:00 AM EDT PATIENT: Elo Baez : 1960 DATE OF SERVICE: 09/13/2018 Chief Complaint Patient presents with Rash itch, calvillo, pain feels like hair on top all over body SUBJECTIVE: Elo Baez is a 58-y.o. female who is here with skin rash on webs of fingers which burn and itch. Starts with small fluid blisters. Also has red, itchy rash on side of right lower abdomen and groin area. Also few scattered red, itchy spots on neck, ears and feet. She states she is very stressed and anxious about the rash. She states had shingles on right posterior thigh recently and she thought rash on abdomen was new area of shingles and is now on valtrex. No fever, chills, fatigue. She denies any new soaps or skin care products. She does not tolerate benadryl. Patient Active Problem List Diagnosis Date Noted Abdominal pain 02/04/2014 Celiac artery stenosis (HCC) 02/04/2014 Chronic hepatitis C virus infection 02/04/2014 Eczema 01/24/2014 TMJ dysfunction 11/08/2012 Headache(784.0) 08/24/2011 Essential hypertension, benign 11/07/2010 Non-cardiac chest pain 05/29/2010 [facility] emergency room evaluation ecg, chest x-ray and blood work negative 05/2010 Negative stress echocardiogram monse Flores 05/[address] Davis negative 06/2010 Chronic low back pain 04/10/2009 Recurrent major depression (HCC) 12/29/2006 [facility] psychiatrist Dr Almaguer and therapist Thiago Almaguer Obstructive sleep apnea 12/29/2006 Panic disorder without agoraphobia 12/29/[address] Bertha Flores every 3 months and counselor every week [place] Agudelo Tobacco use disorder 12/29/2006 Smoking 5 per day 11/09/11 Quit for 2 months 2011 Restarted 04/2010 1-2 packs per day for 30 years Personal history of colonic polyps 12/29/2006 Current Outpatient Medications Medication Sig albuterol HFA (VENTOLIN HFA) 108 (90 Base) MCG/ACT Inhalation Aero Soln Take 2 Puffs by inhalation EVERY FOUR HOURS NEEDED (wheezing coughing.). augmented betamethasone dipropionate (DIPROLENE-AF) 0.05 % Apply externally Cream APPLY TWICEA DAY NEEDED TO AREAS OF CHEST, hands Cetirizine HCl (ZYRTEC ALLERGY) 10 MG Oral Cap Take by mouth. clotrimazole (LOTRIMIN) 1 % Apply externally Cream Apply twice daily Desvenlafaxine Succinate (PRISTIQ) 50 MG Oral TABLET SR 24 HR Take 1 Tab by mouth DAILY. esomeprazole magnesium (NEXIUM) 40 MG Oral CAPSULE DELAYED RELEASE TAKE 1 CAPSULE BY MOUTH EVERY DAY estradiol (ESTRACE) 1 MG Oral Tab TAKE 1 TABLET BY MOUTH EVERY DAY fluticasone (FLONASE) 50 MCG/ACT Nasal Suspension [place] 2 Sprays in nose TWICE DAILY. Each nostril HYDROmorphone (DILAUDID) 2 MG Oral Tab Take 2 Tabs by mouth EVERY SIX HOURS NEEDED (pain).Max Daily Amount: 16 mg. hydrOXYzine pamoate (VISTARIL) 25 MG Oral Cap Take 1 Cap by mouth EVERY EIGHT HOURS NEEDED(itchiness). ibuprofen (ADVIL) 200 MG Oral Tab Take 400 mg by mouth TWICE DAILY. predniSONE (DELTASONE) 20 MG Oral Tab Take 1 Tab by mouth DIRECTED. Take 2 a day for 4 days, then 1 a day for 4 days. Then 1/2 tab a day for 4 days. tizanidine (ZANAFLEX) 4 MG Oral Tab Take 4 mg by mouth EVERY SIX HOURS NEEDED. VALacyclovir 1 g Oral Tab Take 1 Tab by mouth THREE TIMES DAILY for 7 days. XANAX 1 MG Oral Tab Take 1 mg by mouth TWO TIMES DAILY NEEDED for anxiety (1/2 QAM 1 QHS). No current facility-administered medications for this visit. OBJECTIVE: Pulse 88 | Temp 99.4 F (37.4 C) | Resp 16 She is alert and in no distress. Skin with some patches of erythema on posterior neck. There is excoration and red papular outbreak on lower right abdomen. NO vesicular lesions. There is excoriation and vesicular lesions web spaces thumb and second digits bilaterally. Chest is clear, no wheezing or rales. Normal symmetric air entry throughout both lung greer. Heart RRR. ASSESSMENT: ICD-9-CM ICD-10-CM 1. Rash 782.1 R21 augmented betamethasone dipropionate (DIPROLENE-AF) 0.05 % Apply externally Cream Suspect eczema Patient Instructions Off work this week Try prednisone and hydroxyzine for itch Call or return to clinic prn if these symptoms worsen or fail to improve as anticipated. Author: MARCELO Pedraza 09/13/2018 13:02 documented in this encounter Plan of Treatment Date Type Specialty Care Team Description 09/21/2018 Office Visit Orthopedics Refugio Tejada MD [address] [place] [address] Health Maintenance Due Date Last Done Comments LIPID DISORDER SCREENING 11/29/2003 11/28/2002 ZOSTER IMMUNIZATION SERIES 02/21/2012 (1 of 2) MAMMOGRAM (SCREENING) 11/05/2017 11/05/2016, 10/01/2015, 03/14/2014, Additional history exists DEPRESSION SCREENING 02/16/2018 02/16/2017, 02/16/2017 MEDICARE ANNUAL WELLNESS 02/16/2018 02/16/2017 VISIT INFLUENZA VACCINE (#1) 2018 11/26/2016, 11/08/2016, 12/14/2013, Additional history exists COLONOSCOPY SCREENING 05/11/2022 05/11/2017, 05/11/2017, 05/02/2012, Additional history exists PNEUMOCOCCAL 0-64 YRS Completed 05/09/2014 HPV IMMUNIZATION SERIES Aged Out No longer eligible based on patient's age to complete this topic MENINGOCOCCAL VACCINE IMM Aged Out No longer eligible based on patient's age to complete this topic documented as of this encounter Goals Goal Patient Goal Associated Recent Patient-Stated? Author Type Problems Progress Blood Pressure Blood Pressure 121/73 No Brittni, < 140/90 (07/18/2018 Anthony Liang, 3:30 PM EDT) Note: This is an individualized treatment (blood pressure) goal for Elo Baez: Displayed above (on the left) is your goal for blood pressure control. Your most recent blood pressure is also shown above, on the right. You should try to achieve blood pressures that are lower than your goal listed above (on the left). Depression screen Depression 9 (02/16/2017 4:45 PM Anthony Montemayor, (PHQ-9) total score < 5 EST) Note: This is an individualized treatment (depression) goal for Elo Baez: Displayed above is your goal for a depression screening (PHQ-9) score that would indicate good control of your depression. Keep a regular sleep schedule Lifestyle Anthony Montemayor MD Note: This is an individualized lifestyle goal for Elo Baez: Please maintain a regular sleep schedule. This may help with some symptoms of depression. Take all prescribed medications as Self-management Anthony Montemayor MD directed Note: This is an individualized self-management goal for Elo Baez: Please take all prescribed medications as directed. 1. Do not skip doses. If you cannot afford your medications, talk with your doctor. 2. Use a pill reminder system such as a pill box if needed. Your pharmacist can help you with this. 3. Contact your Pharmacy 5 days before your medication runs out. If you cannot take your medications for any reasons, talk with your doctor. 4. Please bring all of your medication bottles and inhalers (or a list of all your medications/inhalers) with you to every visit. Potential barriers to meeting all of your care plan goals will continue to be addressed on an ongoing basis. documented as of this encounter Results Not on filedocumented in this encounter Visit Diagnoses Diagnosis Rash - Primary Rash and other nonspecific skin eruption documented in this encounter Insurance Payer Benefit Plan / Subscriber ID Effective Dates Phone Address Type Group MEDICARE MEDICARE PART A xxxxxxxxxxx 2005-Present Medicare & B MEDICAID [facility] xxxxxxxx 2016-Present Medicaid [place] MEDICAID Guarantor Name Account Type Relation to Date of Phone Billing Address Patient Elo Baez Personal/Family 1960 [address] [phone] [place], [place] (Work) [id number] documented as of this encounter"
--- OUTSIDE RECORDS SUMMARY | 2018-11-01 14:10 | XMS REPORT | Summary of Care ---
:1960 Author Organization [facility] Address [address] [address] Care Team Providers Name Role Phone Anthony Elkins MD Primary Care Provider Miles Roberts DO Unavailable Bertha Almaguer MD Unavailable Steven Erickson MD Unavailable Unavailable Mihir Burciaga MD Unavailable Unavailable Reason for Visit Reason Comments Follow Up Lumbar spine pain. Patient is looking to get injections. Encounter Details Date Type Department Care Team Description 09/21/2018 Office Visit [facility] - Refugio Tejada MD Sacroiliitis (HCC) (Primary Dx); [place] [address] Hip pain, left [address] [facility] [address] [place] [address] [place] [address] [phone] Allergies Active Allergy Reactions Severity Noted Date Comments Bactrim Ds Dermatologic Reaction 2013 Varenicline GI Reaction High 01/19/2017 Codeine Other High 03/04/2007 Severe pruritis and Night lora Dicyclomine Hives 05/14/2008 Environmental Rash 07/18/2018 Latex Rash High 12/17/2016 Blistery type rash Morphine Rash Low 05/02/2012 Rofecoxib Other 03/04/2007 Tongue swelling documented as of this encounter (statuses as of 09/21/2018) Medications Medication Sig Dispensed Refills Start Date End Date Status XANAX 1 MG Oral Tab Take 1 mg by 0 Active mouth TWO TIMES DAILY NEEDED for anxiety (1/2 QAM 1 QHS). ibuprofen (ADVIL) 200 Take 400 mg by 0 Active MG Oral Tab mouth TWICE DAILY. fluticasone (FLONASE) [place] 2 Sprays in 2 Bottle 3 12/17/2016 Active 50 MCG/ACT Nasal nose TWICE DAILY. Suspension Each nostril tizanidine (ZANAFLEX) Take 4 mg by 0 Active 4 MG Oral Tab mouth EVERY SIX HOURS NEEDED. clotrimazole Apply twice daily 60 g 4 03/26/2017 Active (LOTRIMIN) 1 % Apply externally Cream HYDROmorphone Take 2 Tabs by 180 Tab 0 03/11/2018 Active (DILAUDID) 2 MG Oral mouth EVERY SIX Tab HOURS NEEDED (pain). Max Daily Amount: 16 mg. Desvenlafaxine Take 1 Tab by 30 Tab 5 03/11/2018 Active Succinate (PRISTIQ) 50 mouth DAILY. MG Oral TABLET SR 24 HR albuterol HFA Take 2 Puffs by 19 Inhaler 3 04/20/2018 Active (VENTOLIN HFA) 108 (90 inhalation EVERY Base) MCG/ACT FOUR HOURS Inhalation Aero NEEDED (wheezing SolnIndications: coughing.). Tobacco use disorder Cetirizine HCl (ZYRTEC Take by mouth. 0 Active ALLERGY) 10 MG Oral Cap esomeprazole magnesium TAKE 1 CAPSULE BY 30 Cap 1 07/08/2018 Active (NEXIUM) 40 MG Oral MOUTH EVERY DAY CAPSULE DELAYED RELEASE estradiol (ESTRACE) 1 TAKE 1 TABLET BY 90 Tab 2 07/19/2018 Active MG Oral MOUTH EVERY DAY TabIndications: Menopausal state augmented APPLY TWICE A DAY 50 g 2 09/13/2018 Active betamethasone NEEDED TO dipropionate AREAS OF CHEST, (DIPROLENE-AF) 0.05 % hands Apply externally CreamIndications: Rash predniSONE (DELTASONE) Take 1 Tab by 14 Tab 0 09/13/2018 Active 20 MG Oral mouth TabIndications: Rash DIRECTED. Take 2 a day for 4 days, then 1 a day for 4 days. Then 1/2 tab a day for 4 days. hydrOXYzine pamoate Take 1 Cap by 60 Cap 0 09/13/2018 Active (VISTARIL) 25 MG Oral mouth EVERY EIGHT CapIndications: Rash HOURS NEEDED (itchiness). documented as of this encounter (statuses as of 09/21/2018) Active Problems Problem Noted Date Abdominal pain 02/04/2014 Celiac artery stenosis 02/04/2014 Chronic hepatitis C virus infection 02/04/2014 Eczema 01/24/2014 TMJ dysfunction 11/08/2012 Headache(784.0) 08/24/2011 Essential hypertension, benign 11/07/2010 Non-cardiac chest pain 05/29/2010 Overview: [facility] emergency room evaluation ecg, chest x-ray and blood work negative 05/2010 Negative stress echocardiogram apurva Flores 05/[address] Davis negative 06/2010 Chronic low back pain 04/10/2009 Recurrent major depression 12/29/2006 Overview: [facility] psychiatrist Dr Almaguer and [...] as of this encounter (statuses as of 09/21/2018) Resolved Problems Problem Noted Date Resolved Date Lesion of female perineum 04/06/2017 03/11/2018 Overview: Added automatically from request for surgery [id number] Otalgia of left ear 11/08/2012 01/24/2014 Chronic hepatitis C without mention of hepatic coma 12/29/2006 08/04/2012 Degeneration of lumbar or lumbosacral intervertebral disc 12/29/20062013 documented as of this encounter (statuses as of 09/21/2018) Immunizations Name Administration Dates Next Due Adacel [...] Sign Reading Time Taken Comments Blood Pressure 134/74 09/21/2018 2:05 PM EDT Pulse 74 09/21/2018 2:05 PM EDT Temperature - - Respiratory Rate - - Oxygen Saturation - - Inhaled Oxygen Concentration - - Weight 63.5 kg (140 lb) 09/21/2018 2:05 PM EDT Height 167.6 cm (5' 6") 09/21/2018 2:05 PM EDT Body Mass Index 22.6 09/21/2018 2:05 PM EDT documented in this encounter Progress Notes Refugio Tejada MD - 09/21/2018 2:15 PM EDT Name: Elo Baez : 1960 Date of Service: 09/21/2018 Chief Complaint Patient presents with Follow Up Lumbar spine pain. Patient is looking to get injections. 58-year-old woman known to me presents with recurrence of left posterior hip pain. 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 She had taken a week off and was feeling quite good but after working a couple of days got recurrence of severe posterior hip pain in the area of the sacroiliac joint. No radicular symptoms. Does have some groin pain but not severe. In the past, she has been helped by occasional PSIS injection. Most recently helped by sacroiliac joint injection under fluoroscopy several months ago. Physical exam shows a healthy-appearing woman in no acute distress. Alert and oriented. Back grossly normal. Skin is normal. No redness. No swelling. Tender left PSIS. Hip range of motion is full without pain. Vivian test equivocal. Grossly neurovascular status left lower extremity intact. Impression: Flareup of left hip/SI pain. Procedure: In sterile fashion, I injected the left PSIS with 40 mg of Depo- Medrol and 3 cc of 1% lidocaine. Plan: Call early next week if still having pain and will consider injection of sacroiliac joint under fluoroscopy. ICD-9-CM ICD-10-CM 1. Sacroiliitis (HCC) 720.2 M46.1 2. Hip pain, left 719.45 M25.552 Author: Refugio Tejada MD 09/21/2018 14:28 This record contains sections created with voice recognition software. It has been electronically signed. A reasonable attempt at proofreading has been made. Please call with any questions or corrections. documented in this encounter Plan of Treatment Health Maintenance Due Date Last Done Comments LIPID DISORDER SCREENING 11/29/2003 11/28/2002 ZOSTER IMMUNIZATION SERIES 02/21/2012 (1 of 2) MAMMOGRAM (SCREENING) 11/05/2017 11/05/2016, 10/01/2015, 03/14/2014, Additional history exists DEPRESSION SCREENING 02/16/2018 02/16/2017, 02/16/2017 MEDICARE ANNUAL WELLNESS 02/16/2018 02/16/2017 VISIT INFLUENZA VACCINE (#1) 2018 02/07/2018, 11/26/2016, 11/25/2016, Additional history exists COLONOSCOPY SCREENING 05/11/2022 05/11/2017, [...] Type Problems Progress Blood Pressure Blood Pressure 134/74 No [place], < 140/90 (09/21/2018 Anthony Liang, 2:05 PM EDT) Note: This is an individualized treatment (blood pressure) goal for Elo Layneup: Displayed above (on the left) is your [...] filedocumented in this encounter Visit Diagnoses Diagnosis Sacroiliitis (HCC) - Primary Sacroiliitis, not elsewhere classified Hip pain, left Pain in joint, pelvic region and thigh documented in this encounter Insurance Payer Benefit Plan / Subscriber ID Effective Dates Phone Address Type Group MEDICARE MEDICARE PART A xxxxxxxxxxx 2005-Present Medicare & B [place]ICAID [place] xxxxxxxx 2016-Present Medicaid [place]ID Guarantor Name Account Type Relation to Date of Phone Billing Address Patient Elo Baez Personal/Family 1960 [facility] [phone] [place], [place] (Work) [id number] documented as of this encounter
--- OUTSIDE RECORDS SUMMARY | 2018-11-01 14:10 | XMS REPORT | Continuity of Care Document ---
:1960 External Reference #:[id number] Author Name Miles Roberts DO, MPH Address [address] [place] [address], [address] [place] [address] Care Team Providers Name Role Phone Miles Roberts D.O. MPH - Care Team Information Rubber Goods Supervisor [phone] Interventional Pain Medicine Anthony Elkins MD - Internal Care Team Information Rubber Goods Supervisor [phone] Medicine Problems Description No Information Available Social History Type Date Description Comments Sex Unknown ETOH Use Rarely consumes alcohol Tobacco Use Start: Unknown Patient is a current smoker, smokes every day Smoking Status Reviewed: 09/22/18 Patient is a current smoker, smokes every day Allergies, Adverse Reactions, Alerts Active Allergies Reaction Severity Comments Date Dicyclomine SWOLLEN TOUNGE 12/25/2009 Bactrim 2013 Codeine 2013 Rofecoxib 2013 Morphine 2013 Demerol 2013 Medications Active Medications SIG Qnty Indications Ordering Provider Date Dilaudid si every 6 to 120tabs Miles Roberts DO, 03/31/2018 2mg Tablets 8 hours as MPH directed chronic pain patient Flector si apply to 60units S23.41xA Miles Roberts DO, 12/14/2017 1.3% Patches affected area MPH every 12 hours chronic pain patient Zanaflex si/2-1 by 30tabs Miles Roberts DO, 12/02/2017 4mg Tablets mouth twice a day MPH as directed chronic pain patient Premarin 1 PO qod Anthony Elkins, 0.45mg M.D. Tablets Alprazolam si po qhs Unknown 1mg Tablets Pristiq si po qd 30tabs Unknown 50mg Tablets ER 24HR Zyrtec Allergy Unknown 10mg Capsules Flonase Allergy si spray each Unknown Relief nostril daily 50mcg/Act Suspension Immunizations Description No Information Available Vital Signs Date Vital Result Comment 09/22/2018 3:36pm BP Systolic 128 mmHg BP Diastolic 86 mmHg Heart Rate 84 /min Respiratory Rate 20 /min Height 67 inches 5'7" Weight 140.00 lb Pain Level 7 Pain at this time. Pain Level With Medicine 6 on average with meds Pain Level Without Medicine 9 without meds BMI (Body Mass Index) 21.9 kg/m2 08/30/2018 4:05pm BP Systolic 128 mmHg BP Diastolic 86 mmHg Heart Rate 82 /min Respiratory Rate 20 /min Height 67 inches 5'7" Weight 140.00 lb Pain Level 6 Pain at this time. Pain Level With Medicine 6 on average with meds Pain Level Without Medicine 9 without meds BMI (Body Mass Index) 21.9 kg/m2 Results Description No Information Available Procedures Date Code Description Status 08/30/2018 51826 Therapeutic, Prophylactic Or Diagnostic Injection Subq/Im Completed 08/01/2018 35176 Therapeutic, Prophylactic Or Diagnostic Injection Subq/Im Completed 06/30/2018 71544 Therapeutic, Prophylactic Or Diagnostic Injection Subq/Im Completed 06/09/2018 86779 Therapeutic, Prophylactic Or Diagnostic Injection Subq/Im Completed 06/09/2018 11134 Arthrocentesis/Aspiration/Inj Of Major Joint Or Bursa W/ Completed Ultra 06/09/2018 03176 Injection, Single Or Mutiple Trigger Points One Or Two Completed Muscles 05/30/2018 20263 Therapeutic, Prophylactic Or Diagnostic Injection Subq/Im Completed 04/29/2018 10980 Therapeutic, Prophylactic Or Diagnostic Injection Subq/Im Completed 04/29/2018 22033 Injection For Nerve Block, Other Peripheral Nerve Or Completed Branch 04/29/201816880 Inject Tendon/Ligament Completed 04/29/201807936 Inject Tendon/Ligament Completed 03/31/2018 68777 Brief Emotional/Behav Assessment W/ Scoring Doc Per Completed Standard Inst 03/31/2018 59607 Test Autonomic Nervous System, Sudomotor Completed 03/31/2018 76402 Test Autonomic Nervous System, Cardiovagal Innervation Completed Medical Devices Description No Information Available Encounters Type Date Location Provider Dx Diagnosis Office Visit 08/30/2018 Main Office as Of Miles Roberts DO G89.21 Chronic pain due 3:45p 03/11/13 MPH to trauma M54.16 Radiculopathy, lumbar region M54.5 Low back pain 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 R53.83 Other fatigue Office Visit 08/01/2018 3:30p Main Office as Miles Roberts G89.21 Chronic pain due Of 03/11/13 DO, MPH to trauma M54.5 Low back pain M25.552 Pain in left hip M54.16 Radiculopathy, lumbar region 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21 Chronic pain due Of 03/11/13 DO, MPH to trauma M54.5 Low back pain M54.16 Radiculopathy, lumbar region R53.83 Other fatigue 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 Office Visit 04/29/2018 10:00a Main Office as Miles Roberts G89.21 Chronic pain due Of 03/11/13 DO, MPH to trauma M54.16 Radiculopathy, lumbar region M54.5 Low back pain M65.88 Other synovitis and tenosynovitis, other site M79.18 Myalgia, other site R53.83 Other fatigue 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 G90.3 Multi-system degeneration of the autonomic nervous system Office Visit 03/31/2018 4:00p Main Office as Miles Roberts, G89.21 Chronic pain due Of 03/11/13 DO, MPH to trauma M54.16 Radiculopathy, lumbar region M54.5 Low back pain M54.6 Pain in thoracic spine G90.3 Multi-system degeneration of the autonomic nervous system 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 Z13.31 Encounter for screening for depression Assessments Date Code Description Provider 09/22/2018 G89.21 Chronic pain due to trauma Roberts, Miles, DO, MPH 09/22/2018 M25.552 Pain in left hip Roberts, Miles, DO, MPH 09/22/2018 M54.5 Low back pain Roberts, Miles, DO, MPH 09/22/2018 M54.16 Radiculopathy, lumbar region Roberts, Miles, DO, MPH 09/22/2018 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 Roberts, Miles , DO, MPH 08/30/2018 G89.21 Chronic pain due to trauma Roberts, Miles, DO, MPH 08/30/2018 M54.16 Radiculopathy, lumbar region Roberts, Miles, DO, MPH 08/30/2018 M54.5 Low back pain Roberts, Miles, DO, MPH 08/30/2018 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 Roberts, Miles , DO, MPH 08/30/2018 R53.83 Other fatigue Roberts, Miles, DO, MPH 08/01/2018 G89.21 Chronic pain due to trauma Roberts, Miles, DO, MPH 08/01/2018 M54.5 Low back pain Roberts, Miles, DO, MPH 08/01/2018 M25.552 Pain in left hip Roberts, Miles, DO, MPH 08/01/2018 M54.16 Radiculopathy, lumbar region Roberts, Miles, DO, MPH 08/01/2018 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 Roberts, Miles , DO, MPH 08/01/2018 R53.83 Other fatigue Roberts, Miles, DO, MPH 06/30/2018 G89.21 Chronic pain due to trauma Roberts, Miles, DO, MPH 06/30/2018 M54.5 Low back pain Roberts, Miles, DO, MPH 06/30/2018 M54.16 Radiculopathy, lumbar region Roberts, Miles, DO, MPH 06/30/2018 M25.552 Pain in left hip Roberts, Miles, DO, MPH 06/30/2018 R53.83 Other fatigue Roberts, Miles, DO, MPH 06/30/2018 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 Roberts, Miles , DO, MPH 06/09/2018 G89.21 Chronic pain due to trauma Roberts, Miles, DO, MPH 06/09/2018 M54.5 Low back pain Roberts, Miles, DO, MPH 06/09/2018 M54.16 Radiculopathy, lumbar region Roberts, Miles, DO, MPH 06/09/2018 M25.552 Pain in left hip Roberts, Miles, DO, MPH 06/09/2018 M79.18 Myalgia, other site Roberts, Miles, DO, MPH 06/09/2018 R53.83 Other fatigue Roberts, Miles, DO, MPH 05/30/2018 G89.21 Chronic pain due to trauma Roberts, Miles, DO, MPH 05/30/2018 M54.5 Low back pain Roberts, Miles, DO, MPH 05/30/2018 M54.16 Radiculopathy, lumbar region Roberts, Miles, DO, MPH 05/30/2018 R53.83 Other fatigue Roberts, Miles, DO, MPH 05/30/2018 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 Roberts, Miles , DO, MPH 04/29/2018 G89.21 Chronic pain due to trauma Roberts, Miles, DO, MPH 04/29/2018 M54.16 Radiculopathy, lumbar region Roberts, Miles, DO, MPH 04/29/2018 M54.5 Low back pain Roberts, Miles, DO, MPH 04/29/2018 M65.88 Other synovitis and tenosynovitis, other Roberts, Miles, DO , MPH site 04/29/2018 M79.18 Myalgia, other site Roberts, Miles, DO, MPH 04/29/2018 R53.83 Other fatigue Roberts, Miles, DO, MPH 04/29/2018 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 Roberts, Miles , DO, MPH 04/29/2018 G90.3 Multi-system degeneration of the autonomic Roberts, Miles, DO , MPH nervous system 03/31/2018 G89.21 Chronic pain due to trauma Roberts, Miles, DO, MPH 03/31/2018 M54.16 Radiculopathy, lumbar region Roberts, Miles, DO, MPH 03/31/2018 M54.5 Low back pain Roberts, Miles, DO, MPH 03/31/2018 M54.6 Pain in thoracic spine Roberts, Miles, DO, MPH 03/31/2018 G90.3 Multi-system degeneration of the autonomic Roberts, Miles, DO , MPH nervous system 03/31/2018 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 Symptoms and complaints discussed and reviewed today. No significant changes in physical findings. Continue current medical pain management.M25.552 Pain in left hipM54.5 Low back painComments:Chronic. Symptoms and complaints discussed and reviewed today.No changes in physical findings. Patient is stable and comfortable when current medical therapy is rendered.M54.16 Radiculopathy, lumbar regionComments:Chronic. Symptoms and complaints discussed and reviewed today. No changes in physical findings; patient is stable on current medical therapy.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New Labs:Urine Drug Screen, Ordered: 09/22/18Comments:Urine drug screen sample taken today to monitor opiate use and to monitor use of illicit substances.Will discuss results at next appointment.The following tests were ordered:6 AM, AMPH, SHAHZAD, LUIS, BUP, CARIS, COCM, COT, ETG, FENT, MCSHSG, OPI, OXY, PCP, TAPEN, XTSY, ZOLP. A urine drug test (UDT) was ordered for this patient and collected on site today. Creatinine has been ordered as well for specimen validity, not for kidney function. Preliminary UDT results are not final and should not be used to determine patient care or plan of treatment. Initially a qualitative immunoassay screen will be done. Any inconsistent or positive findings will be further tested with a more comprehensive quantitative confirmation LCMS study. It is part of the treatment process of prescribing controlled substances and is considered standard of care.AllComments:Continue current medical pain management; injection therapy, osteopathic manipulation, PT / modalities, and consults as needed to manage chronic pain.Non - opioid pain management discussed and optionsdiscussed.Side effects discussed; anticipatory guidance given. Patient clearly understand and agree with all medical treatments and suggestions. All medicines prescribed are adequate and appropriate for this patient's complaint of pain, medical history, physical, and personal goals.Goals of Treatment are to provide adequate and appropriate multidisciplinary medical pain management to increase/ maintain patient's quality of life and functionality while maintaining satisfactory side effect profile andminimizing alf end-organ damage. Importance of regular nutrition throughout the day discussed.Activity as toleratedContinue with PCP Functional Status Description No Information Available Mental Status Description No Information Available Referrals Description No Information Available
--- OUTSIDE RECORDS SUMMARY | 2018-11-01 14:10 | XMS REPORT | Continuity of Care Document ---
:1960 External Reference #:[id number] Author Name Miles Roberts DO, MPH Address [address] [place] [address], [address] [place] [address] Care Team Providers Name Role Phone Miles Roberts D.O. MPH - Care Team Information Special Police [phone] Interventional Pain Medicine Anthony Elkins MD - Internal Care Team Information Special Police [phone] Medicine Problems Description No Information Available Social History Type Date Description Comments Sex Unknown ETOH Use Rarely consumes alcohol Tobacco Use Start: Unknown Patient is a current smoker, smokes every day Smoking Status Reviewed: 10/25/18 Patient is a current smoker, smokes every day Allergies, Adverse Reactions, Alerts Active Allergies Reaction Severity Comments Date Dicyclomine SWOLLEN TOUNGE 12/25/2009 Bactrim 2013 Codeine 2013 Rofecoxib 2013 Morphine 2013 Demerol 2013 Medications Active Medications SIG Qnty Indications Ordering Provider Date Oxycodone HCL si by mouth 45tabs Miles Roberts DO, 10/25/2018 5mg every 6 to 8 MPH Tablets hours as directed chronic pain patient Zanaflex si/2-1 by 30tabs Miles Roberts DO, 12/02/2017 4mg Tablets mouth twice a day MPH as directed chronic pain patient Premarin 1 PO qod Anthony Elkins, 0.45mg Tablets M.D. Alprazolam si po qhs Unknown 1mg Tablets Pristiq si po qd 30tabs Unknown 50mg Tablets ER 24HR Flonase Allergy si spray each Unknown Relief nostril daily 50mcg/Act Suspension Immunizations Description No Information Available Vital Signs Date Vital Result Comment 10/25/2018 3:11pm BP Systolic 122 mmHg BP Diastolic 74 mmHg Heart Rate 76 /min Respiratory Rate 20 /min Height 67 inches 5'7" Weight 149.00 lb Pain Level 6 Pain at this time. Pain Level With Medicine 6 on average with meds Pain Level Without Medicine 9 without meds BMI (Body Mass Index) 23.3 kg/m2 09/22/2018 3:36pm BP Systolic 128 mmHg BP [...] Available Procedures Date Code Description Status 08/30/2018 86270 Therapeutic, Prophylactic Or Diagnostic Injection Subq/Im Completed 08/01/2018 01027 Therapeutic, Prophylactic Or Diagnostic Injection Subq/Im Completed 06/30/2018 82795 Therapeutic, Prophylactic Or Diagnostic Injection Subq/Im Completed 06/09/2018 62868 Therapeutic, Prophylactic Or Diagnostic Injection Subq/Im Completed 06/09/201824011 Arthrocentesis/Aspiration/Inj Of Major Joint Or Bursa W/ Completed Ultra 06/09/2018 84458 Injection, Single Or Mutiple Trigger Points One Or Two Completed Muscles 05/30/2018 82339 Therapeutic, Prophylactic Or Diagnostic Injection Subq/Im Completed 04/29/2018 44509 Therapeutic, Prophylactic Or Diagnostic Injection Subq/Im Completed 04/29/2018 34223 Injection For Nerve Block, Other Peripheral Nerve Or Completed Branch 04/29/2018 54654 Inject Tendon/Ligament Completed 04/29/2018 18161 Inject Tendon/Ligament Completed Medical Devices Description No Information Available Encounters Type Date Location Provider Dx Diagnosis Office Visit 09/22/2018 Main Office as Of Miles Roberts DO, G89.21 Chronic pain due 3:30p 03/11/13 MPH to trauma M25.552 Pain in left hip M54.5 Low back pain M54.16 Radiculopathy, lumbar region Z79.891 alf (current) use of opiate analgesic Office Visit 08/30/2018 3:45p Main Office as Miles Roberts G89.21 Chronic pain due Of 2// DO, MPH to trauma M54.16 Radiculopathy, lumbar region M54.5 Low back pain Z79.891 alf (current) use of opiate analgesic R53.83 Other fatigue Office Visit 08/01/2018 3:30p Main Office as Miles Roberts G89.21 Chronic pain due Of 2/02/21 DO, MPH to trauma M54.5 Low back pain M25.552 Pain in left hip M54.16 Radiculopathy, lumbar region Z79.891 alf (current) use of opiate analgesic R53.83 Other fatigue Office Visit 06/30/2018 3:30p Main Office as Miles Roberts G89.21 Chronic pain due Of 2/02/21 DO, MPH to trauma M54.5 Low back pain M54.16 Radiculopathy, lumbar region M25.552 Pain in left hip R53.83 Other fatigue Z79.891 alf (current) use of opiate analgesic Office Visit 06/09/2018 3:30p Main Office as Miles Roberts G89.21 Chronic pain due Of 03/11/13 DO, MPH to trauma M54.5 Low back pain M54.16 Radiculopathy, lumbar region M25.552 Pain in left hip M79.18 Myalgia, other site R53.83 Other fatigue Office Visit 05/30/2018 3:30p Main Office as Miles Roberts G89.21 Chronic pain due Of 2/02/21 DO, MPH to trauma M54.5 Low back pain M54.16 Radiculopathy, lumbar region R53.83 Other fatigue 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 Office Visit 04/29/2018 10:00a Main Office as Miles Roberts G89.21 Chronic pain due Of 2/02/21 DO, MPH to trauma M54.16 Radiculopathy, lumbar region M54.5 Low back pain M65.88 Other synovitis and tenosynovitis, other site M79.18 Myalgia, other site R53.83 Other fatigue 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 G90.3 Multi-system degeneration of the autonomic nervous system Assessments Date Code Description Provider 10/25/2018 G89.21 Chronic pain due to trauma Roberts, Miles, DO, MPH 10/25/2018 M54.5 Low back pain Roberts, Miles, DO, MPH 10/25/2018 M54.16 Radiculopathy, lumbar region Roberts, Miles, DO, MPH 10/25/2018 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 Roberts, Miles , DO, MPH 10/25/2018 R53.83 Other fatigue Roberts, Miles, DO, MPH 09/22/2018 G89.21 Chronic pain due to trauma Roberts, Miles, DO, MPH 09/22/2018 M25.552 Pain in left hip Roberts, Miles, DO, MPH 09/22/2018 M54.5 Low back pain Roberts, Miles, DO, MPH 09/22/2018 M54.16 Radiculopathy, lumbar region Roberts, Miles, DO, MPH 09/22/2018 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 Roberts, Miles , DO, MPH 08/30/2018 G89.21 Chronic pain due to trauma Roberts, Miles, DO, MPH 08/30/2018 M54.16 Radiculopathy, lumbar region Roberts, Miles, DO, MPH 08/30/2018 M54.5 Low back pain Roberts, Miles, DO, MPH 08/30/2018 Z79.891 alf (current) use of opiate analgesic Roberts, Miles , DO, MPH 08/30/2018 R53.83 Other fatigue Roberts, Miles, DO, MPH 08/01/2018 G89.21 Chronic pain due to trauma Roberts, Miles, DO, MPH 08/01/2018 M54.5 Low back pain Roberts, Miles, DO, MPH 08/01/2018 M25.552 Pain in left hip Roberts, Miles, DO, MPH 08/01/2018 M54.16 Radiculopathy, lumbar region Roberts, Miles, DO, MPH 08/01/2018 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 Roberts, Miles [...] fatigue Roberts, Miles, DO, MPH 06/30/2018 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 Roberts, Miles [...] fatigue Roberts, Miles, DO, MPH 05/30/2018 Z79.891 alf (current) use of opiate analgesic Roberts, Miles , DO, MPH 04/29/2018 G89.21 Chronic pain due to trauma Roberts, Miles, DO, MPH 04/29/2018 M54.16 Radiculopathy, lumbar region Roberts, Miles, DO, MPH 04/29/2018 M54.5 Low back pain Miles Roberts DO MPH 04/29/2018 M65.88 Other synovitis and tenosynovitis, other Miles Roberts DO MPH site 04/29/2018 M79.18 Myalgia, other site Miles Roberts DO MPH 04/29/2018 R53.83 Other fatigue Miles Roberts DO MPH 04/29/2018 Z79.891 alf (current) use of opiate analgesic Miles Roberts DO MPH 04/29/2018 G90.3 Multi-system degeneration of the autonomic Miles Roberts DO MPH nervous system Plan of Treatment Future Appointment(s):11/08/2018 2:45 pm - Miles Roberts DO MPH at Main Office as Of 03/11/1409 10:30 am - Miles Roberts DO MPH at Main Office as Of 03/11/1408 - Miles Roberts DO, MPHG89.21 Chronic pain due to traumaComments:Chronic. Symptoms and complaints discussed and reviewed today. No significant changes in physical findings. Continue current medical pain management.M54.5 Low back painComments:Chronic. Symptoms and complaints discussed and reviewed today.No changes in physical findings. Patient is stable and comfortable when current medical therapy is rendered.M54.16 Radiculopathy, lumbar regionComments:Chronic. Symptoms and complaints discussed and reviewed today. No changes in physical findings; patient is stable on current medical therapy.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New Labs:Urine Drug Screen, Ordered: 10/25/18Comments:Urine drug screen sample taken today to monitor [...] controlled substances and is considered standard of care.R53.83 Other fatigueComments:Symptoms and complaints discussed and reviewed today. No significant changes in physical findings. Continue current medical pain management. B12 injection administered after patient evaluated. 1ml IM for fatigue. (See Consent for injection-B12 document for lot number and expiration date.)AllNew Medication: Oxycodone HCL 5 mg - si by mouth every 6 to 8 hours as directed chronic pain patientComments:Continue current medical pain management; injection therapy, osteopathic [...] while maintaining satisfactory side effect profile andminimizing cash processing specialist end-organ damage. Importance of regular nutrition throughout the day discussed.Activity as toleratedContinue with PCP Functional Status Description No Information Available Mental Status Description No Information Available Referrals Description No Information Available
--- NOTE | 2018-11-01 17:48 | ED ---
Lower Extremity - HPI Summary HPI Summary: Pt is a 58 y/o F presenting to the ED with a chief complaint of low back pain radiating to her bilateral hips. She had back surgery in 2004 but the pain has recently been flaring up, as she had to stop seeing her surgeon for shots for the pain. She has tried 5mg Oxycontin and 2mg Dilaudid, but nothing has helped. This morning, she experienced diarrhea, and she noted polydipsia with decreased frequency of urination. She reports some numbness in her LE. She denies fever or weakness. - History of Current Complaint Chief Complaint: EDAbdPain Stated Complaint: LOWER ABD/HIP PAIN PROBLEMS WALKING PER PT Time Seen by Provider: 11/01/18 17:21 Hx Obtained From: Patient Mechanism Of Injury: Unknown Onset of Pain: Days Onset/Duration: Still Present Severity Initially: Moderate Severity Currently: Severe Pain Intensity: 10 Pain Scale Used: 0-10 Numeric Timing: Constant, Lasting Days Location: Is Diffuse - lower back, hips Associated Signs And Symptoms: Negative: Fever, Weakness Aggravating Factor(s): Standing Alleviating Factor(s): Nothing Able to Bear Weight: Yes - with pain - Allergies/Home Medications Allergies/Adverse Reactions: Allergies Allergy/AdvReac Type Severity Reaction Status Date / Time codeine Allergy See Comment Verified 12/02/17 12:19 morphine Allergy Rash Verified 12/02/17 12:19 naproxen Allergy Unknown Verified 12/02/17 12:19 Reaction Details Home Medications: Home Medications ALPRAZolam TAB* [Xanax TAB*] 0.5 mg PO QAM PRN 11/01/18 [History Confirmed 11/01] ALPRAZolam TAB* [Xanax TAB*] 1 mg PO BEDTIME PRN 11/01/18 [History Confirmed ] Betamethasone Dipropionate 0.05 % TOPICAL BID 11/01/18 [History Confirmed ] Cetirizine* [ZyrTEC 10 MG TAB*] 10 mg PO DAILY 11/01/18 [History Confirmed 11/01] Clotrimazole 1% CREAM* [Clotrimazole 1%*] 1 applic TOPICAL BID 11/01/18 [ History Confirmed 11/01/18] Fluticasone NASAL SPRAY 50MCG* [Flonase NASAL SPRAY 50MCG*] 2 spray BOTH NARES BID 11/01/18 [History Confirmed 11/01/18] Ibuprofen TAB* [Advil TAB*] 400 mg PO BID PRN 11/01/18 [History Confirmed ] hydrOXYzine HCL TAB* [Atarax 25 MG TAB*] 25 mg PO Q8HR PRN 11/01/18 [History Confirmed 11/01/18] oxyCODONE TAB* [Roxycodone TAB 5 mg*] 5 mg PO .Q6-8H PRN 11/01/18 [History Confirmed 11/01/18] tiZANidine TAB* [Zanaflex TAB*] 2 - 4 mg PO BID PRN 11/01/18 [History Confirmed 11/01/18] PMH/Surg Hx/FS Hx/Imm Hx Previously Healthy: Yes Endocrine/Hematology History: Denies: Hx Anticoagulant Therapy, Hx Diabetes, Hx Sickle Cell Disease Cardiovascular History: Reports: Hx Hypertension, Other Cardiovascular Problems/ Disorders - Large cell arteritis Denies: Hx Pacemaker/ICD Respiratory History: Reports: Hx Chronic Obstructive Pulmonary Disease (COPD) GI History: Reports: Hx Gastroesophageal Reflux Disease, Hx Irritable Bowel, Hx Ulcer - no tylenol or naproxen as per pt History: Reports: Hx Kidney Stones Denies: Hx Renal Disease Musculoskeletal History: Reports: Hx Arthritis, Hx Back Problems - Dr Roberts for pain management., Other Musculoskeletal History - neck pain Denies: Hx Scoliosis Sensory History: Reports: Hx Contacts or Glasses Denies: Hx Legally Blind, Hx Deafness, Hx Hearing Aid Opthamlomology History: Reports: Hx Contacts or Glasses Denies: Hx Legally Blind Neurological History: Reports: Hx Headaches, Other Neuro Impairments/Disorders Psychiatric History: Reports: Hx Anxiety, Hx Depression, Hx Panic Disorder, Hx Inpatient Treatment, Hx Suicide Attempt Denies: Hx of Violent Episodes Against Others - Cancer History Hx Chemotherapy: Yes - HEPATITIS C-2009 Hx Radiation Therapy: No - Surgical History Surgery Procedure, Year, and Place: LARGE CELL ARTERYITIS 6MTHS AGO AT [place] -SPINE SURGERY 2005 DISCECTOMY, HYSTERECTOMY, Hx Anesthesia Reactions: Yes Infectious Disease History: No Infectious Disease History: Reports: Hx Hepatitis Denies: Hx of Known/Suspected MRSA, Hx Shingles, Hx Tuberculosis, Traveled Outside the [place] in Last 30 Days - Family History Known Family History: Positive: Cardiac Disease, Other - aneurysm grandmother, blood clots - Social History Alcohol Use: Occasionally Alcohol Amount: three times a year Hx Substance Use: Yes Substance Use Type: Reports: Prescribed Hx Tobacco Use: Yes Smoking Status (MU): Light Every Day Tobacco Smoker Type: Cigarettes Amount Used/How Often: 12-14 cigarettes a day Length of Time of Smoking/Using Tobacco: 40 years Have You Smoked in the Last Year: Yes Review of Systems Negative: Fever Positive: Diarrhea Positive: frequency - decreased, other - polydipsia Positive: Myalgia Positive: Numbness All Other Systems Reviewed And Are Negative: Yes Physical Exam - Summary Physical Exam Summary: VITAL SIGNS: Reviewed. GENERAL: Patient is a well-developed and nourished female who is lying comfortable in the stretcher. Patient is not in any acute respiratory distress. HEAD AND FACE: No signs of trauma. No ecchymosis, hematomas or skull depressions. No sinus tenderness. EYES: PERRLA, EOMI x 2, No injected conjunctiva, no nystagmus. EARS: Hearing grossly intact. Ear canals and tympanic membranes are within normal limits. MOUTH: Oropharynx within normal limits. NECK: Supple, trachea is midline, no adenopathy, no JVD, no carotid bruit, no c- spine tenderness, neck with full ROM. CHEST: Symmetric, no tenderness at palpation. LUNGS: Clear to auscultation bilaterally. No wheezing or crackles. CVS: Regular rate and rhythm, S1 and S2 present, no murmurs or gallops appreciated. ABDOMEN: Soft, non-tender. No signs of distention. No rebound, no guarding, and no masses palpated. Bowel sounds are normal. EXTREMITIES: No edema, no cyanosis or clubbing. NEURO: Alert and oriented x 3. No acute neurological deficits. Speech is normal and follows commands. SKIN: Dry and warm. Back: BACK: Patient came in the room with a wheelchair, No signs of trauma, no soft tissue ecchymosis. Positive paraspinal muscle tenderness in the lumbar spine. No masses palpated. Positive vertebral tenderness. No CVAT, no flank ecchymosis . No sacroiliac notch tenderness, No saddle anesthesia. ROM: decreased flexion, extension Straight Leg Raise: Positive at 45 degrees. Patellar reflexes: brisk, symmetric Muscle strength lower extremities: Dorsiflexion, plantar flexion of ankles normal. Unable to assess ambulation since patient reports she can not ambulate Pulses: Femoral, popliteal, posterior tibial, and pedal pulses strong and palpable. Rectal: Patient rectal exam with normal sphincter tone. Triage Information Reviewed: Yes Vital Signs On Initial Exam: Initial Vitals Temp Pulse Resp BP Pulse Ox 98.2 F 74 17 143/100 96 11/01/18 13:53 11/01/18 13:53 11/01/18 13:53 11/01/18 13:53 11/01/18 13:53 Vital Signs Reviewed: Yes Diagnostics - Vital Signs Vital Signs Temp Pulse Resp BP Pulse Ox 11/01/18 15:38 98.1 F 74 19 186/100 98 11/01/18 13:53 98.2 F 74 17 143/100 96 - Laboratory Result Diagrams: 11/01/18 18:21 11/01/18 18:15 Lab Statement: Any lab studies that have been ordered have been reviewed, and results considered in the medical decision making process. Lower Extremity Course/Dx - Course Assessment/Plan: This patient is a 58-year-old female who presents to the emergency department with a chief complaint of lower back pain. The patient has a history of back pain status post surgery with rods and screws. She reports that shes been having urinary retention and bowel dysfunction. She reports that she is in pain management however the patient noted oxycodone and dilaudid that she is taking is not helping. The patient also has some numbness in the lower extremities and she is weak to the point that she is unable to ambulate. Therefore she decided to come to the emergency room for further assessment. In the ED course I did a rectal exam and the patient has normal rectal tone. Because of the severity of the symptoms I ordered for the patient and Decadron, Toradol, fentanyl, for the pain. I did order blood work, and I did order an MRI with and without contrast of the lumbar spine. The patient will be signed out to Dr. Escobar for further workup and management at shift change. - Diagnoses Provider Diagnoses: Low back pain, Lumbar disc herniation Discharge ED - Sign-Out/Discharge Documenting (check all that apply): Sign-Out Patient Signing out patient TO: Constance Escobar - Discharge Plan Condition: Stable Disposition: HOME Prescriptions: predniSONE [Prednisone 20 MG TAB] 60 mg PO DAILY #12 tablet Patient Education Materials: Lumbar Disc Herniation (ED), Back Pain (ED) Forms: *Work Release Referrals: Anthony Elkins MD [Primary Care Provider] - 3 Days Refugio Tejada MD [Medical Doctor] - 3 Days Miles Roberts DO [Doctor of Osteopathy] - 3 Days Additional Instructions: Please follow up with your primary care physician, Dr. Tejada, and Dr. Roberts within 3 days. Please return to Emergency Department for any new or worsening symptoms. - Billing Disposition and Condition Condition: STABLE - Attestation Statements Document Initiated by Scribe: Yes Documenting Scribe: Vee Ramirez Provider For Whom Faraz is Documenting (Include Credential): Thierno Pichardo MD. Scribe Attestation: Vee Arora, myraed for Thierno Pichardo MD. on 11/02/18 at 0741. Scribe Documentation Reviewed: Yes Provider Attestation: The documentation as recorded by the vivianibeVee accurately reflects the service I personally performed and the decisions made by Thierno perez MD. Status of Scribe Document: Viewed
[2018-11-01] MEDS ORDERED: Dexamethasone IV* 4 MG/ML 5 ML VIAL (20 MG) IVPB ONE (18:02)
[2018-11-01] MEDS ORDERED: fentaNYL* 50 MCG/ML 2 ML VIAL (100 MCG VIAL) IV SLOW PU ONE ×2 (18:03→22:14)
[2018-11-01] MEDS ORDERED: Orphenadrine Citrate IV* 30 MG/ML 2 ML VIAL IV ONE (18:03)
[2018-11-01] MEDS ORDERED: Ketorolac INJ* 30 MG/ML 1 ML VIAL IV PUSH ONE (18:03)
[2018-11-01] MEDS ORDERED: NS 0.9% 1000 ML** 1,000 ML IV ONE (18:12)
[2018-11-01 18:26] LABS: Urine Appearance Clear; Urine Bilirubin Negative (Negative); Urine Blood Negative (Negative); Urine Color Yellow; Urine Glucose Negative (Negative); Urine Ketones Negative (Negative); Urine Nitrite Negative (Negative); Urine Protein Negative (Negative); Urine Specific Gravity 1.011 (1.010-1.030); Urine Urobilinogen Negative (Negative)
[2018-11-01 18:59] LABS: ABS Basophils 0.1 10^3/ul (0-0.2); ABS Eosinophils 0.3 10^3/ul (0-0.6); ABS Lymphocytes 2.3 10^3/ul (1.0-4.8); ABS Monocytes 0.6 10^3/ul (0-0.8); ABS Neutrophils 7.4 10^3/ul (1.5-7.7); Hematocrit 39 % (35-47); Hemoglobin 13.4 g/dL (12.0-16.0); Lymphocyte % 21.7 %; Mean Corpuscular HGB Conc 35 g/dL (31-36); Mean Corpuscular Hemoglobin 33 pg (27-31); Mean Corpuscular Volume 93 fL (80-97); Mean Platelet Volume 8.1 fL (7.4-10.4); Platelet Count 245 10^3/uL (150-450); Red Blood Count 4.13 10^6 /uL (3.70-4.87); Red Cell Distribution Width 14 % (10-15); White Blood Count 10.7 10^3/uL (3.5-10.8)
[2018-11-01 19:16] LABS: Albumin 4.1 g/dL (3.2-5.2); Albumin/Globulin Ratio 1.3 (1-3); BUN/Creatinine Ratio 12.1 (8-20); C Reactive Protein 11.12 mg/L (<8.01); Calcium 9.2 mg/dL (8.6-10.3); EGFR African American 130.1 (>60); EGFR Non-African American 107.5 (>60); Globulin 3.1 g/dL (2-4); Potassium 3.7 mmol/L (3.5-5.0); Total Bilirubin 0.6 mg/dL (0.2-1.0); Total Protein 7.2 g/dL (6.4-8.9)
[2018-11-01] MEDS ORDERED: Gadoteridol* (CONTRAST) 279.3 MG/ML 10 ML IV ONE (19:40)
[2018-11-01] MEDS ORDERED: Dexamethasone IV* 4 MG/ML 1 ML (4 MG) IV SLOW PU ONE (20:00)
--- NOTE | 2018-11-01 20:14 | ED ---
Progress - Progress Note Progress Note: This patient is signed out from Dr. Pichardo upon shift change at 19:00 on 11/01/18 for further workup and management, awaiting MRI Lumbar Spine and pending disposition. MRI Lumbar Spine shows, per radiologist: Multilevel degenerative disc disease, facet and ligamentum flavum hypertrophy. Mild spinal canal stenosis at L2-L3 and mild to moderate at L3-L4. Mild bilateral neural foramina narrowing at L2-L3 , moderate to severe left and moderate right at L3-L4. ED physician has reviewed this report. Home Medications Medication Instructions Recorded Confirmed Type Desvenlafaxine (NF) [Pristiq (NF)] 50 mg PO QAM 11/30/16 11/01/18 History Esomeprazole(NF) [Nexium(NF)] 20 mg PO DAILY 11/30/16 11/01/18 History Estradiol (NF) 1 mg PO QAM 11/30/16 11/01/18 History HYDROmorphone TAB* [Dilaudid TAB*] 2 mg PO .Q6-8H PRN 11/30/16 11/01/18 History ALPRAZolam TAB* [Xanax TAB*] 0.5 mg PO QAM PRN 11/01/18 11/01/18 History ALPRAZolam TAB* [Xanax TAB*] 1 mg PO BEDTIME PRN 11/01/18 11/01/18 History Betamethasone Dipropionate 0.05 % TOPICAL BID 11/01/18 11/01/18 History [Betamethasone Dipropionat] Cetirizine* [ZyrTEC 10 MG TAB*] 10 mg PO DAILY 11/01/18 11/01/18 History Clotrimazole 1% CREAM* 1 applic TOPICAL BID 11/01/18 11/01/18 History [Clotrimazole 1%*] Fluticasone NASAL SPRAY 50MCG* 2 spray BOTH NARES BID 11/01/18 11/01/18 History [Flonase NASAL SPRAY 50MCG*] Ibuprofen TAB* [Advil TAB*] 400 mg PO BID PRN 11/01/18 11/01/18 History hydrOXYzine HCL TAB* [Atarax 25 MG 25 mg PO Q8HR PRN 11/01/18 11/01/18 History TAB*] oxyCODONE TAB* [Roxycodone TAB 5 5 mg PO .Q6-8H PRN 11/01/18 11/01/18 History mg*] tiZANidine TAB* [Zanaflex TAB*] 2 - 4 mg PO BID PRN 11/01/18 11/01/18 History Re-Evaluation - Re-Evaluation First Eval Re-Evaluation Time: 21:55 Comment: Patient was informed of her MRI Lumpar Spine results. Patient states she is seen by Dr. Tejada, orthopedics/sports medicine, who has been giving her shots for pain. Last night, patient states she was barely able to move/to stand. Patient states her pain is aggravated by movement. Patient states that the pain is now shooting into her hips which she has never experienced before. Patient states she has had back surgery done in [place]. She states she fell on April last year on ice. She states that she has been treating her pain with Dilaudid 2 mg four times a day without relief. Patient states she was referred to the ED today by the pain management clinic. She states she sees Dr. Roberts at the pain clinic. Patient was advised to follow up with the pain management clinic and orthopedics. Second Eval Re-Evaluation Time: 22:08 Change: Improved Comment: patient is ambulating in the ED. ordered another dose of fentanyl prior to discharge Course/Dx - Course Course Of Treatment: This patient is signed out from Dr. Pichardo upon shift change at 19:00 on 11/01/18 for further workup and management, awaiting MRI Lumbar Spine and pending disposition. MRI Lumbar Spine shows, per radiologist: Multilevel degenerative disc disease, facet and ligamentum flavum hypertrophy. Mild spinal canal stenosis at L2-L3 and mild to moderate at L3-L4. Mild bilateral neural foramina narrowing at L2-L3, moderate to severe left and moderate right at L3-L4. The patient feels better and would like to go home. Patient will be discharged home with prescription for a 5-day course of oral prednisone 60 mg and follow up from Dr. Tejada, orthopedics, and Dr. Roberts, pain management. Patient requested that she be given a note to excuse her from work. Patient was given an off note work until she is cleared by a physician. Patient was instructed to return to Emergency Department for new or worsening symptoms. Patient understands and is agreeable to this plan. We ordered another dose of fentanyl for patient prior to discharge. We will also increase her dose of prednisone to 60 mg a day for 1 week then wean her off slowly. - Diagnoses Provider Diagnoses: Low back pain, Lumbar disc herniation Discharge ED - Sign-Out/Discharge Documenting (check all that apply): Patient Departure - Discharge Patient Received Moderate/Deep Sedation with Procedure: No - Discharge Plan Condition: Stable Disposition: HOME Prescriptions: predniSONE [Prednisone 20 MG TAB] 60 mg PO DAILY #12 tablet Patient Education Materials: Lumbar Disc Herniation (ED), Back Pain (ED) Forms: *Work Release Referrals: Anthony Elkins MD [Primary Care Provider] - 3 Days Refugio Tejada MD [Medical Doctor] - 3 Days Miles Roberts DO [Doctor of Osteopathy] - 3 Days Additional Instructions: Please follow up with your primary care physician, Dr. Tejada, and Dr. Roberts within 3 days. Please return to Emergency Department for any new or worsening symptoms. - Billing Disposition and Condition Condition: STABLE Disposition: Home - Attestation Statements Document Initiated by Devanibe: Yes Documenting Scribe: Tita Samayoa Provider For Whom Faraz is Documenting (Include Credential): Constance Escobar MD Scribe Attestation: I, Tita Samayoa, scribed for Constance Escobar MD on 11/02/18 at 0040. Scribe Documentation Reviewed: Yes Provider Attestation: The documentation as recorded by the Tita galvez accurately reflects the service I personally performed and the decisions made by me, Constance Escobar MD Status of Scribe Document: Viewed
[2018-11-01 22:36] VITALS: BP 178/82
== END 2018-11-01 22:38 | disposition home or self-care (01) ==
LOC: ED 13:34
DX: M51.26 Other intervertebral disc displacement, lumbar region (principal); M51.36 Other intervertebral disc degeneration, lumbar region; M48.061 Spinal stenosis, lumbar region without neurogenic claudication; I10 Essential (primary) hypertension; J44.9 Chronic obstructive pulmonary disease, unspecified; K21.9 Gastro-esophageal reflux disease without esophagitis; F41.9 Anxiety disorder, unspecified; F32.9 Major depressive disorder, single episode, unspecified; F17.210 Nicotine dependence, cigarettes, uncomplicated; Z90.710 Acquired absence of both cervix and uterus; Z79.899 Other long term (current) drug therapy; Z88.5 Allergy status to narcotic agent; Z88.8 Allergy status to other drugs, medicaments and biological substances
CPT/HCPCS: 36415; 72158; 80053; 81003; 83605; 83690; 85025; 85652; 86140; 96361; 96374; 96375; 96376; 99282; A9579; J1100; J1885; J2360; J3010